=== PATIENT | female | born 1980 | race Caucasian/White ===

== ENCOUNTER 2017-01-07 07:30 | Inpatient (IN) | payer BC ==
[~2017-01-07 07:30] MED LIST: cefOXitin 2 GM Vial ONE
[2017-01-07] MEDS ORDERED: Succinylcholine 200 MG/10 ML MDV ONE (07:56)
[2017-01-07] MEDS ORDERED: Rocuronium 50 MG/5 ML Vial ONE ×2 (07:56→12:37)
[2017-01-07] MEDS ORDERED: Propofol 200 MG/20 ML SDV ONE (07:56)
[2017-01-07] MEDS ORDERED: Neostigmine Methylsulfate 1 MG/ML 5 ML Syringe ONE (07:56)
[2017-01-07] MEDS ORDERED: Dexamethasone 4 MG/ML SDV ONE (07:56)
[2017-01-07] MEDS ORDERED: Glycopyrrolate 0.2 MG/ML 5 ML MDV ONE (07:56)
[2017-01-07] MEDS ORDERED: Ondansetron 4 MG/2 ML SDV ONE (07:56)
[2017-01-07] MEDS ORDERED: Lactated Ringers 1,000 ML ONE (07:58)
[2017-01-07] MEDS ORDERED: Scopolamine 1.5 MG Transdermal Patch TRDERM SCH (08:00)
[2017-01-07] MEDS ORDERED: Celecoxib 200 MG Cap PO ONE (08:00)
[2017-01-07] MEDS ORDERED: Gabapentin 300 MG Cap PO ONE (08:00)
[2017-01-07] MEDS ORDERED: Acetaminophen 500 MG Tab PO ONE (08:00)
[2017-01-07] MEDS ORDERED: Dextrose 5%-Lactated Ringers 1,000 ML IV SCH (08:30)
[2017-01-07] MEDS ORDERED: Albuterol/Ipratropium 3.0-0.5 MG/3 ML Neb Soln NEB ONE (10:00)
[2017-01-07] MEDS ORDERED: Ropivacaine 60 ML, Dexamethasone 8 MG, EPINEPHrine 0.4 MG, Sodium Chloride 0.9% 17.6 ML NERVRT ONE ×4 (10:15)
[2017-01-07] MEDS ORDERED: Ketamine 500 MG/5 ML MDV IV ONE (10:15)
[2017-01-07] MEDS ORDERED: Lidocaine 2% 100 MG/5 ML Syringe IVPUSH ONE (10:15)
[2017-01-07] MEDS: cefOXitin 2 GM in Sodium Chloride 0.9% 50 ML IV ONE ×2 (11:15→15:19)
[2017-01-07] MEDS ORDERED: fentaNYL 100 MCG/2 ML SDV ONE (13:05)
[2017-01-07] MEDS: Lidocaine 0.4%/D5W 2 GM/500 ML BAG IV SCH (14:52)
[2017-01-07] MEDS ORDERED: Metoclopramide 10 MG/2 ML SDV IVPUSH PRN (15:00)
[2017-01-07] MEDS ORDERED: diphenhydrAMINE 50 MG/ML SDV IVPUSH PRN (15:00)
[2017-01-07] MEDS ORDERED: Labetalol 20 MG/4 ML Syringe IVPUSH PRN (15:00)
[2017-01-07] MEDS ORDERED: SCOPOLAMINE PATCH CHECK TOP SCH (15:00)
[2017-01-07] MEDS ORDERED: Albuterol/Ipratropium 3.0-0.5 MG/3 ML Neb Soln INH PRN (15:00)
[2017-01-07] MEDS: Albuterol/Ipratropium 3.0-0.5 MG/3 ML Neb Soln INH SCH ×2 (15:35→21:10)
[2017-01-07] MEDS: cefOXitin 2 GM in Sodium Chloride 0.9% 50 ML IV SCH ×2 (16:11→22:42)
[2017-01-07] MEDS: Acetaminophen Soln 650 MG/20.3 ML UD Cup PO SCH ×2 (16:16→21:13)
[2017-01-07] MEDS: hydrOXYzine HCl 100 MG/2 ML SDV IM PRN ×2 (16:21→22:35)
[2017-01-07] MEDS: Pantoprazole 40 MG Vial IVPUSH SCH (16:27)
[2017-01-07] MEDS: MVI, Adult with Vitamin K 10 ML, Thiamine 200 MG, Chromium/Copper/Mang/Selen/Zn 1 ML in... IV SCH ×4 (18:10)
[2017-01-07] MEDS: Ondansetron 4 MG/2 ML SDV IVPUSH PRN (20:54)
[2017-01-07] MEDS: Heparin Sodium 5,000 Units/ML Vial SUBCUT SCH (20:54)
[2017-01-07] MEDS: Gabapentin 250 MG/5 ML Solution ML 470 ML Bottle PO SCH (21:03)
[2017-01-08] MEDS: Dextrose 5%-Lactated Ringers 1,000 ML IV SCH ×3 (00:46→19:22)
[2017-01-08] MEDS ORDERED: Lactated Ringers 500 ML IV ONE (01:50)
[2017-01-08] MEDS ORDERED: Iohexol 647 MG/ML 50 ML SDV PO STA (03:11)
[2017-01-08] MEDS: Acetaminophen Soln 650 MG/20.3 ML UD Cup PO SCH ×4 (03:52→21:53)
[2017-01-08] MEDS: Lidocaine 0.4%/D5W 2 GM/500 ML BAG IV SCH (03:52)
[2017-01-08] MEDS: cefOXitin 2 GM in Sodium Chloride 0.9% 50 ML IV SCH ×2 (03:52→09:43)
[2017-01-08] MEDS: Ondansetron 4 MG/2 ML SDV IVPUSH PRN (06:28)
[2017-01-08] MEDS: Heparin Sodium 5,000 Units/ML Vial SUBCUT SCH ×2 (07:18→19:48)
[2017-01-08] MEDS: Albuterol/Ipratropium 3.0-0.5 MG/3 ML Neb Soln INH SCH ×4 (07:41→19:59)
[2017-01-08] MEDS ORDERED: Mometasone Furoate Nasal Spray 17 GM Canister NASBOTH PRN (07:54)
[2017-01-08] MEDS ORDERED: ClonazePAM 0.5 MG Tab PO PRN (07:54)
[2017-01-08] MEDS ORDERED: Ondansetron 4 MG Tab.DIS PO PRN (07:54)
[2017-01-08] MEDS ORDERED: Albuterol 8 GM Inhaler INH PRN (07:54)
[2017-01-08] MEDS ORDERED: FLUoxetine 20 MG Cap PO SCH ×2 (09:00)
--- NOTE | 2017-01-08 09:06 | PN ---
DATE OF SERVICE: 01/08/2017 SUBJECTIVE: Radha is postop day #1. Her upper GI was normal. She has received Vistaril for additional pain. She did receive one bolus of lactated Ringer's and has voided 3 times since. She does have some nausea. She has been up ambulating. REVIEW OF SYSTEMS: Remainder of review of systems negative for any pertinent positives or negatives. OBJECTIVE: GENERAL: Radha Choi is a 36-year-old female. She is nauseated right now and not feeling real well. VITAL SIGNS: TPR is 98.4, 90, 18, and blood pressure 146/90. HEENT: Negative. NECK: Supple. HEART: Regular rate and rhythm. LUNGS: Clear. ABDOMEN: Dressings dry and intact. Abdominal binder is on. EXTREMITIES: Without peripheral edema. She has had her SCDs on when she is in bed. ASSESSMENT: Laparoscopic Valerie-en-Y gastric bypass surgery, liver biopsy, repair of diaphragmatic hernia, and excision of mediastinal lipoma for morbid obesity, hepatomegaly, diaphragmatic hernia, and mediastinal lipoma. Date of surgery 01/07/2017, Brandon Youngblood MD. NEW ORDERS: 1. Dressing off. 2. July shower. 3. Ventolin inhaler 2 puffs q.4 hours p.r.n. shortness of breath. 4. Wellbutrin 100 mg p.o. t.i.d. 5. Zyrtec 10 mg p.o. daily. 6. Clonazepam 0.5 mg p.o. t.i.d. p.r.n. anxiety. 7. Flexeril 10 mg at bedtime. 8. Prozac 40 mg oral Friday, Friday, Friday, and Friday. 9. Prozac 80 mg Friday, Friday, , and Friday. 10.Metformin 500 mg b.i.d. 11.Mometasone furoate one spray in each nostril daily. 12.Zofran 4 mg ODT q.4 hours p.r.n. pain. 13.Inderal 40 mg p.o. q.8 hours. 14.Good pulmonary toilet. 15.We will evaluate p.r.n. or in a.m. Kiley Perdue PA-C /[id number]
[2017-01-08] MEDS: Celecoxib 200 MG Cap PO SCH (09:34)
[2017-01-08] MEDS: Propranolol 40 MG Tab PO SCH ×3 (09:35→23:30)
[2017-01-08] MEDS: metFORMIN 500 MG Tab PO SCH ×2 (09:35→17:53)
[2017-01-08] MEDS: buPROPion 100 MG Tab PO SCH ×3 (09:36→19:59)
[2017-01-08] MEDS: Cetirizine 10 MG Tab PO SCH (09:36)
[2017-01-08] MEDS: Gabapentin 250 MG/5 ML Solution ML 470 ML Bottle PO SCH ×3 (09:44→19:59)
--- NOTE | 2017-01-08 09:52 | CR ---
[facility] HISTORY: eval r-n-y gastric bypass FINDINGS: After administration of oral contrast, upright views were obtained. Post operative changes gastric bypass. Surgical drains in place. No evidence for leak. Contrast passes freely into proximal small bowel loops. IMPRESSION: No evidence for leak or obstruction.
[2017-01-08] MEDS: Pantoprazole 40 MG Vial IVPUSH SCH (15:37)
[2017-01-08] MEDS: MVI, Adult with Vitamin K 10 ML, Thiamine 200 MG, Chromium/Copper/Mang/Selen/Zn 1 ML in... IV SCH ×4 (15:37)
--- NOTE | 2017-01-08 19:29 | PCM.SN ---
- Free Text/Narrative Note: time: 19:22 call from 2 [facility]; requesting consult for skin rash s; Ms. Choi denies any shortness of breath, agitation, pruritus, cough or swallowing difficulty o; new IV fluids started prior to onset of rash, D5LR with multi vitamins. vital signs stable no respiratory distress, easy breathing pattern, lungs clear Skin; red, warm to touch, blotchy rash is noted to face, neck, upper chest and arms. a; possible allergic reaction to IV fluids with multi vitamins p; advise to stop IV D5LR with Multi vitamins, start IV D5 LR at previous rate. give IV Benadryl 25mg now. re-assess in 1 to 2 hours, if still with redness will consider start short term IV steroids. Advise Ms. Chio to notify Nursing Staff of any breathing changes or worsen rash.
[2017-01-08] MEDS ORDERED: Cyclobenzaprine 10 MG Tab PO PRN (22:00)
[2017-01-08] MEDS ORDERED: methylPREDNISolone Sodium Succinate 125 MG/2 ML SDV IVPUSH SCH (23:00)
[2017-01-08] MEDS ORDERED: Insulin Aspart 100 Units/ML 3 ML Pen SUBCUT SCH (23:00)
[2017-01-09] MEDS: Acetaminophen Soln 650 MG/20.3 ML UD Cup PO SCH (03:47)
[2017-01-09] MEDS: Dextrose 5%-Lactated Ringers 1,000 ML IV SCH (05:25)
[2017-01-09] MEDS: Celecoxib 200 MG Cap PO SCH (07:29)
[2017-01-09] MEDS: metFORMIN 500 MG Tab PO SCH (07:29)
[2017-01-09] MEDS: Propranolol 40 MG Tab PO SCH (07:30)
[2017-01-09] MEDS: Albuterol/Ipratropium 3.0-0.5 MG/3 ML Neb Soln INH SCH (07:32)
[2017-01-09] MEDS: Gabapentin 250 MG/5 ML Solution ML 470 ML Bottle PO SCH (08:09)
[2017-01-09] MEDS: buPROPion 100 MG Tab PO SCH (08:10)
[2017-01-09] MEDS: Cetirizine 10 MG Tab PO SCH (08:11)
[2017-01-09] MEDS ORDERED: FLUoxetine 20 MG Cap PO SCH ×2 (09:00)
[2017-01-09] MEDS ORDERED: Cyanocobalamin (Vitamin B12) 1,000 MCG/ML SDV IM ONE (09:00)
--- NOTE | 2017-01-09 11:26 | DISCH ---
ADMISSION DIAGNOSIS: Morbid obesity, BMI 57; allergic rhinitis; bilateral myopia; binge eating disorder; depression; diarrhea; general anxiety disorder; headache; high risk sexual behavior; hyperprolactinemia; IUD contraception; keratosis polaris; low back pain; menstrual irregularity; migraine headache; myofascial pain syndrome; neurological complaint; obesity; panic disorder without agoraphobia; plantar fasciitis; polycystic ovary disease; rosacea; seborrheic dermatitis; syncope; and tinnitus. DISCHARGE DIAGNOSES: Laparoscopic Valerie-en-Y gastric bypass surgery, liver biopsy, repair of diaphragmatic hernia and excision of mediastinal lipoma for morbid obesity, hepatomegaly, diaphragmatic hernia, and mediastinal lipoma. Date of surgery, 01/07/2017, Brandon Youngblood MD. HISTORY: Radha Choi is a 36-year-old female with longstanding history of morbid obesity with increasing comorbidities. After preoperative evaluation and discussion of possible risks and possible complications, she wished to proceed with surgical procedure. HOSPITAL COURSE: Radha had her surgery on 01/07/2017. She had no operative complications. On postop day #1, her upper GI was normal, and she was started on a step-2 gastric bypass diet without cereal. On postop day #2, her activity was good. She received adequate postoperative education, pain was well managed, activity was good, oral intake adequate, and she was able to be discharged to home. DISCHARGE PHYSICAL EXAMINATION: GENERAL: Radha Choi is a 36-year-old female. VITAL SIGNS: Height is 5 feet 6.54 inches, weight is 363 pounds, BMI is 57, TPR is 97.8, 86, 18. Blood pressure 118/66. HEENT: Negative. NECK: Supple. HEART: Regular rate and rhythm. LUNGS: Clear. ABDOMEN: Incisions look good. Sutures intact. 4x4s were placed over MAGALYS drain site. Abdominal binder has been on. EXTREMITIES: Without peripheral edema. DISPOSITION: Discharged to home. CONDITION: Stable and improving. FOLLOWUP APPOINTMENTS: Kiley Perdue PA-C on 01/21/2017 at 10:00 a.m. HOME MEDICATIONS: Acetaminophen 650/20.3 mL q.6 hours for 2 weeks; Celebrex 200 mg p.o. daily, #14; she is to resume her home medication of Midrin two capsules daily p.r.n. migraine headache; ProAir two puffs inhalation every 4 hours; Zyrtec 10 mg oral daily; Klonopin 0.5 mg t.i.d. p.r.n. anxiety; Flexeril 10 mg oral every evening; Prozac 80 mg q. Friday, Friday, , Friday; Prozac 40 mg every Friday, Friday, Friday, and Friday; Neurontin 600 mg q.3 times daily; Nasonex 1 spray in each nostril daily p.r.n.; Inderal 40 mg oral 3 times a day; Wellbutrin 100 mg 3 times a day; metformin 500 mg oral twice daily. DISCHARGE DIET: Step 2 gastric bypass diet without cereal for 2 weeks. ACTIVITY: No lifting greater than 10 pounds for 2 weeks. Driving after discharge, do not drive for 1 week. Shower/bathing, may shower. Notify provider if any fever, nausea, or vomiting. Keep site clean and dry. Wear abdominal binder for 2 weeks and then p.r.n. SPECIAL INSTRUCTION: Use incentive spirometer 10 times every hour while awake for 2 weeks.
--- NOTE | 2017-01-13 15:36 | OR ---
DATE OF PROCEDURE: 01/07/2017 PREOPERATIVE DIAGNOSIS: Morbid obesity. POSTOPERATIVE DIAGNOSES: 1. Morbid obesity. 2. Marked hepatomegaly. 3. Paraesophageal diaphragmatic hernia. 4. Mediastinal lipoma. OPERATIVE PROCEDURES: 1. Laparoscopic Valerie-en-Y gastric bypass with long limb gastroenterostomy (08369). 2. Channing-Cut needle liver biopsy (99074). 3. Repair of paraesophageal diaphragmatic hernia (75469). 4. Excision of mediastinal lipoma (92353). ANESTHESIA: General. INDICATION FOR PROCEDURE: This is a 36-year-old female presenting with longstanding morbid obesity and increasingly significant comorbidities. After preoperative evaluation and discussion, she wished to proceed with a gastric bypass procedure. Potential risks of the procedure including bleeding, infection, leaks from various GI tract closures, problems with bowel obstruction over time as well as possibility of cardiopulmonary, septic, or hemorrhagic complications leading to were discussed, and the patient wishes to proceed. DETAILS OF PROCEDURE: The patient was taken to the operating room, and after general endotracheal anesthesia was induced, she was converted to a lithotomy position. Bilateral subcostal transverse abdominis plane blocks were then placed using continuous ultrasound guidance and the usual solutions. The abdomen was then prepped and draped and an orogastric tube placed. At 15 cm inferior, 5 cm left of xiphoid process, a transverse incision was made and the peritoneal cavity entered under direct vision with Optiview trocar inflated to 15 mmHg pressure with CO2. Laparoscope was reinserted. No underlying trocar insertion site injuries were seen. Following this, 5 additional trocars were placed across the upper and mid abdomen, and general exploration was undertaken. The patient was noted to have marked hepatomegaly with liver volume being roughly 2 to 3 times normal and liver was grossly fatty infiltrated. Channing-Cut needle biopsies were obtained from left lobe of the liver. Minimal bleeding from the biopsy sites was controlled with electrocautery. The omentum was then divided in the midline up to the level of the transverse colon. This allowed identification of the small bowel at the ligament of Treitz. Small bowel was then traced out 200 cm distal to that point and was divided transversely with a ELSI stapler. Small bowel was then traced out additional 150 cm where the [id number] enteroenterostomy was accomplished with internal firing of the Endo-ELSI 60 mm stapler. Common opening was then closed transversely with the same stapler and angles anastomosed, mesenteric defect approximated with some 0 Ethibond stitch, along with fibrin sealant. The divided end of the Valerie limb was from the mesentery for a few centimeters, which allowed an antecolic position of the Valerie limb up to the level of the esophagogastric junction without tension. The liver was then retracted anteriorly. The patient was noted to have a moderate-sized paraesophageal diaphragmatic hernia. This contained some omentum, along with some perigastric fat in the edge of the fundus, prolapsing in a plane anterior to the course of the esophagus. The hernia was reduced and the peritoneum overlying it incised. During the course of the dissection, a mediastinal lipoma was encountered and was excised to facilitate adequate repair of the hernia. The hernia was then repaired anteriorly with 0 Ethibond sutures, reinforced with PTFE pledgets. The gastrointestinal balloon catheter was inflated to 15 mL and pulled up snugly against the EG junction. Gastric wall over the apex of the balloon was then marked with electrocautery and balloon catheter was deflated and pulled up from the esophagus. The lesser omental tissue was then divided, allowing dissection behind the stomach at the level of the gastric cardia. At that level, the pouch was initiated with a transverse firing of the ELSI stapler and then completed with 2 additional firings of ELSI stapler up to and through the angle of His. Upon completion of the pouch, both staple lines were noted to be intact. The anvil of a 21 mm EEA stapler was then attached to Huerfano sump type tube. The latter was brought down through the mouth and taken out through a small opening in the gastric pouch, allowing the anvil likewise to be pulled down to within the gastric pouch. The divided end of the Valerie limb was then opened and the main body of the EEA stapler passed several centimeters into the small bowel and brought up the anvil and united with it, thus creating the gastrojejunostomy. Upon removal of the stapler, double donuts of mucosa were noted within it. The small bowel was closed off with a vascular staple line. Gastrojejunostomy was reinforced with some 3-0 Vicryl seromuscular stitch, along with fibrin sealant. Leak test was accomplished with injection of 120 mL of air in the gastric pouch while submerged with cefoxitin-containing saline solution. No leaks were identified. A single Mauricio- Jennings drain was taken out through the left lateral trocar site, placed in the area of the gastrojejunostomy and up into the splenic fossa. The trocars were sequentially removed and the peritoneal cavity decompressed. The incision was closed with some 4-0 Vicryl skin stitch, and the patient was taken to the recovery room in satisfactory condition. There were no evident complications. Brandon Youngblood MD /[id number]
== END 2017-01-09 09:44 | disposition home or self-care (01) | DRG 403 ==
LOC: EDSTATUS 07:30 → JP.SDS 08:15 → JP.SDSSCHI 08:15 → JP.2SS 13:30
PROVIDERS: ADMIT Surgery; ATTEND Surgery
PROC: 0D164ZA Bypass Stomach to Jejunum, Percutaneous Endoscopic Approach (ICD-10-PCS; principal; 2017-01-07)
PROC: 0BQT4ZZ Repair Diaphragm, Percutaneous Endoscopic Approach (ICD-10-PCS; 2017-01-07)
PROC: 0FB24ZX Excision of Left Lobe Liver, Percutaneous Endoscopic Approach, Diagnostic (ICD-10-PCS; 2017-01-07)
PROC: 0WBC4ZX Excision of Mediastinum, Percutaneous Endoscopic Approach, Diagnostic (ICD-10-PCS; 2017-01-07)
DX: E66.01 Morbid (severe) obesity due to excess calories (principal); Z68.43 Body mass index [BMI] 50.0-59.9, adult; G43.909 Migraine, unspecified, not intractable, without status migrainosus; F32.9 Major depressive disorder, single episode, unspecified; G40.909 Epilepsy, unspecified, not intractable, without status epilepticus; F41.1 Generalized anxiety disorder; Z87.891 Personal history of nicotine dependence; M54.9 Dorsalgia, unspecified; J30.9 Allergic rhinitis, unspecified; K44.9 Diaphragmatic hernia without obstruction or gangrene; R16.0 Hepatomegaly, not elsewhere classified; D17.4 Benign lipomatous neoplasm of intrathoracic organs; Z88.2 Allergy status to sulfonamides; Z91.048 Other nonmedicinal substance allergy status; K76.0 Fatty (change of) liver, not elsewhere classified
CPT/HCPCS: 36415; 74240; 74240-26; 80048; 82962; 83735; 84100; 85027; 86850; 86900; 86901; 88304; 88307; 88313; 94640; A9270-GY; C9113; J0171; J0330; J0694; J1100; J1200; J1644; J2001; J2405; J2704; J2710; J2765; J2795; J2930; J3010; J3410; J3411; J3420; J7030; J7040; J7042; J7050; J7120; J7620; Q9967

== ENCOUNTER 2017-01-25 21:00 | Observation (INO) | payer BC ==
[2017-01-25] MEDS ORDERED: Ondansetron 4 MG Tab.DIS PO PRN (21:19)
[2017-01-25] MEDS ORDERED: Acetaminophen 325 MG Tab PO PRN (21:22)
[2017-01-25] MEDS ORDERED: [UNRECOGNIZED DRUG - OTHER] PO PRN (21:26)
[2017-01-25] MEDS ORDERED: ACETAMINOPHEN PO PRN (21:26)
[2017-01-25] MEDS ORDERED: ISOMETHEPTENE PO PRN (21:26)
[2017-01-25] MEDS ORDERED: Albuterol 8 GM Inhaler INH PRN (21:26)
[2017-01-25] MEDS ORDERED: Pantoprazole 40 MG Vial IVPUSH SCH (21:30)
[2017-01-25] MEDS ORDERED: MVI, Adult with Vitamin K 10 ML, Thiamine 100 MG, Magnesium Sulfate 2 GM, Folic Acid 1 ... IV SCH ×5 (21:30)
[2017-01-25] MEDS ORDERED: Magnesium Sulfate (4.06 MEQ/ML) 1 GM/2 ML SDV ONE (22:35)
[2017-01-25] MEDS ORDERED: Folic Acid 50 MG/10 ML MDV ONE (22:36)
[2017-01-25] MEDS ORDERED: Thiamine 200 MG/2 ML MDV ONE (22:37)
[2017-01-25] MEDS ORDERED: MVI, Adult with Vitamin K 10 ML SDV IV ONE (22:37)
[2017-01-25] MEDS: Acetaminophen Soln 650 MG/20.3 ML UD Cup PO SCH (23:26)
[2017-01-26] MEDS: Dextrose 5%-Lactated Ringers 1,000 ML IV SCH ×2 (03:07→09:57)
[2017-01-26] MEDS: Acetaminophen Soln 650 MG/20.3 ML UD Cup PO SCH ×2 (03:59→14:02)
--- NOTE | 2017-01-26 06:29 | PCM.HP ---
H&P History of Present Illness - General Date of Service: 01/26/17 Source of Information: Patient History Limitations: Reports: No Limitations - History of Present Illness Initial Comments - Free Text/Narative: Patient started Step 3 Diet on 01/21/17 and was eating some hamburger yesterday at noon felt it get stuck. After trying Papaya enzyme and clear liquids she went to ED to [place] recieved IV fluids and continued to vomit. She is admitted for Observation to have an EGD with possible dilation today. Improves with: Reports: None Worsens with: Reports: Eating Associated Symptoms: Reports: Nausea/Vomiting - Related Data Allergies/Adverse Reactions: Allergies Allergy/AdvReac Type Severity Reaction Status Date / Time adhesive tape Allergy Rash Verified 01/07/17 08:49 Sulfa (Sulfonamide Allergy Itching Verified 01/07/17 08:49 Antibiotics) Home Medications: Home Meds Acetaminop/Dichlphn/Isomethept [Midrin 325-100-65 MG] 2 cap PO DAILY PRN [History] Albuterol Sulfate [Proair Hfa] 2 inh INH Q4H PRN 01/03/17 [History] Celecoxib [CeleBREX] 200 mg PO DAILY 01/03/17 [History] Cetirizine [ZyrTEC] 10 mg PO DAILY 01/03/17 [History] ClonazePAM [KlonoPIN] 0.5 mg PO TID PRN 01/03/17 [History] FLUoxetine HCl [Prozac] 80 mg PO SUTUTHSA 01/03/17 [History] FLUoxetine [PROzac] 40 mg PO MOWEFRSA 01/03/17 [History] Gabapentin [Neurontin] 600 mg PO TID 01/03/17 [History] Mometasone Furoate [Nasonex] 1 inh INH DAILY PRN 01/03/17 [History] Propranolol [Inderal LA] 40 mg PO TID 01/03/17 [History] buPROPion [Wellbutrin XL] 100 mg PO TID 01/03/17 [History] metFORMIN [Glucophage] 500 mg PO BIDMEALS 01/03/17 [History] Cyclobenzaprine [Flexeril] 10 mg PO QPM 01/07/17 [History] Acetaminophen [Tylenol] 650 mg PO Q6H #1200 ml 01/09/17 [Rx] Celecoxib [CeleBREX] 200 mg PO DAILY@0800 #14 cap 01/09/17 [Rx] Ondansetron [Zofran ODT] 4 mg PO Q4H PRN #30 tab.dis 01/09/17 [Rx] Past Medical History HEENT History: Reports: Allergic Rhinitis, Sinusitis Respiratory History: Reports: Bronchitis, Recurrent Gastrointestinal History: Reports: Cholelithiasis, Chronic Diarrhea, GERD 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: Dysfunctional Uterine Bleeding, Polycystic Ovaries, , Spontaneous Musculoskeletal History: Reports: Back Pain, Chronic, Fracture, Other (See Below ) Other Musculoskeletal History: Yuniel carpal tunnel Neurological History: Reports: Migraines, Seizure, Other (See Below) Other Neuro History: Non epileptic spells Psychiatric History: Reports: Anxiety, Depression, Panic Attack, PTSD Endocrine/Metabolic History: Reports: Obesity/BMI 30+ Dermatologic History: Reports: None - Infectious Disease History Infectious Disease History: Reports: Chicken Pox - Past Surgical History HEENT Surgical History: Reports: LASIK, Oral Surgery Respiratory Surgical History: Reports: None GI Surgical History: Reports: Appendectomy, Cholecystectomy, Other (See Below) Other GI Surgeries/Procedures: RNY Female Surgical History: Reports: None Endocrine Surgical History: Reports: None Neurological Surgical History: Reports: None Musculoskeletal Surgical History: Reports: Other (See Below) Other Musculoskeletal Surgeries/Procedures:: Left wrist fx/plate Dermatological Surgical History: Reports: Skin Biopsy Social & Family History - Family History Family Medical History: Noncontributory - Tobacco Use Smoking Status *Q: Never Smoker Years of Tobacco use: 8 Packs/Tins Daily: 0.1 Used Tobacco, but Quit: Yes Month Tobacco Last Used: 2007 Second Hand Smoke Exposure: No - Caffeine Use Caffeine Use: Reports: None - Alcohol Use Days Per Week of Alcohol Use: 0 - Recreational Drug Use Recreational Drug Use: No H&P Review of Systems - Review of Systems: Review Of Systems: ROS reveals no pertinent complaints other than HPI. Exam - Exam Exam: See Below - Vital Signs Vital Signs: Last Vital Signs Temp 96.9 F 01/26/17 04:02 Pulse 73 01/26/17 04:02 Resp 18 01/26/17 04:02 BP 128/74 01/26/17 04:02 Pulse Ox 98 01/26/17 04:02 Weight: 339 lb 6.4 oz - Exam Quality Assessment: DVT Prophylaxis General: Alert, Oriented HEENT: PERRLA Neck: Supple, Trachea Midline Lungs: Clear to Auscultation, Normal Respiratory Effort Cardiovascular: Regular Rate, Regular Rhythm GI/Abdominal Exam: Soft (Female) Exam: Deferred Rectal (Female) Exam: Deferred Back Exam: Normal Inspection Extremities: Normal Inspection Skin: Warm, Dry, Intact Neurological: Cranial Nerves Intact, Reflexes Equal Bilateral Neuro Extensive - Mental Status: Alert, Oriented x3, Normal Mood/Affect Neuro Extensive - Motor, Sensory, Reflexes: CN II-XII Intact Psychiatric: Alert, Normal Affect, Normal Mood *Q Meaningful Use (ADM) - VTE *Q VTE Criteria *Q: - Stroke *Q Stroke Criteria *Q: - AMI *Q AMI Criteria *Q: Problem List Initiated/Reviewed/Updated: Yes Orders Last 24hrs: Active Orders 24 hr Category Date Time Status Intake and Output [RC] ASDIRECTED Care 01/25/17 21:21 Active Verify Patient Consent Obtain [RC] ASDIRECTED Care 01/25/17 21:23 Active Vital Signs [RC] Q8H Care 01/25/17 21:29 Active Acetaminop/Dichlphn/Isomethept [Midrin 325-100-65 MG] Med 01/25/17 21:26 Active 2 cap PO DAILY PRN Acetaminophen [Tylenol] Med 01/25/17 21:22 Active 650 mg PO Q4H PRN Acetaminophen [Tylenol] Med 01/25/17 21:30 Active 650 mg PO Q6H Albuterol [Ventolin HFA] Med 01/25/17 21:26 Active 0 gm INH Q4H PRN Dextrose 5%-Lactated Ringers 1,000 ml Med 01/25/17 21:30 Active IV ASDIRECTED FLU Vacc [id number] 36Mos UP/PF [Fluzone Quad [id number]] Med 01/26/17 10:00 Once 60 mcg IM .ONCE ONE Glycopyrrolate Med 01/26/17 09:00 Once 0.4 mg IVPUSH ONETIME ONE Ondansetron [Zofran ODT] Med 01/25/17 21:19 Active 4 mg PO Q4H PRN Ondansetron [Zofran] Med 01/25/17 21:20 Active 4 mg IVPUSH Q4H PRN Pantoprazole [ProTONIX IV] Med 01/25/17 21:30 Active 40 mg IVPUSH Q24H buPROPion [Wellbutrin XL] Med 01/26/17 09:00 Active 100 mg PO TID SCD [Sequential Compression Device] [OM.PC] Routine Oth 01/25/17 21:20 Ordered Medication Orders Acetaminophen (Tylenol) 650 mg PO Q4H PRN PRN Reason: Pain Acetaminophen (Tylenol) 650 mg PO Q6H [facility] Last Admin: 01/26/17 03:59 Dose: 650 mg Admin: 01/25/17 23:26 Dose: Not Given Albuterol (Ventolin Hfa) 0 gm INH Q4H PRN PRN Reason: Shortness of Breath Glycopyrrolate (Glycopyrrolate) 0.4 mg IVPUSH ONETIME ONE Stop: 01/26/17 09:01 Dextrose/Lactated Ringer's (Dextrose 5%-Lactated Ringers) 1,000 mls @ 150 mls/ hr IV ASDIRECTED [facility] Last Admin: 01/26/17 03:07 Dose: 150 mls/hr Influenza Virus Vaccine (Fluzone Quad [id number]) 60 mcg IM .ONCE ONE Stop: 01/26/17 10:01 Isometheptene/Acetam/Dichloralphen (Midrin 325-100-65 Mg) 2 cap PO DAILY PRN PRN Reason: migraine headache Non-Formulary Medication (Bupropion [Wellbutrin Xl]) 100 mg PO TID [facility] Ondansetron HCl (Zofran Odt) 4 mg PO Q4H PRN PRN Reason: Nausea/Vomiting Last Admin: 01/25/17 22:25 Dose: 4 mg Ondansetron HCl (Zofran) 4 mg IVPUSH Q4H PRN PRN Reason: Nausea/Vomiting Pantoprazole Sodium (Protonix Iv) 40 mg IVPUSH Q24H [facility] Last Admin: 01/25/17 23:26 Dose: 40 mg Assessment/Plan Comment:: Dysphagia Admit to Observation Plan: EGD with Dilation See copy of orders Kiley Moore
[2017-01-26] MEDS ORDERED: Acetaminophen 160 MG Tab,Disintegrating PO PRN (07:11)
[2017-01-26] MEDS: Ondansetron 4 MG/2 ML SDV IVPUSH PRN ×2 (07:56→12:02)
[2017-01-26] MEDS ORDERED: buPROPion 100 MG Tab PO SCH (09:00)
[2017-01-26] MEDS ORDERED: BUPROPION 100 MG PO SCH (09:00)
[2017-01-26] MEDS ORDERED: Glycopyrrolate 0.2 MG/ML 2 ML SDV IVPUSH ONE (09:00)
[2017-01-26] MEDS ORDERED: FLU Vacc QS 2017-18 (36mos UP)/PF 60 MCG/0.5 ML Syringe IM ONE (10:00)
[2017-01-26] MEDS ORDERED: fentaNYL 100 MCG/2 ML SDV ONE (10:06)
[2017-01-26] MEDS ORDERED: Propofol 200 MG/20 ML SDV ONE (10:07)
[2017-01-26] MEDS ORDERED: Midazolam 1 MG/ML 2 ML SDV ONE (10:07)
[2017-01-26] MEDS ORDERED: Ondansetron 4 MG/2 ML SDV ONE (10:54)
[2017-01-26] MEDS ORDERED: Metoclopramide 10 MG/2 ML SDV IV ONE (12:00)
--- NOTE | 2017-01-29 10:35 | OR ---
DATE OF PROCEDURE: 01/26/2017 PREOPERATIVE DIAGNOSIS: Strictured gastrojejunostomy. POSTOPERATIVE DIAGNOSIS: Strictured gastrojejunostomy. OPERATIVE PROCEDURE: Upper GI endoscopy with dilation of gastrojejunostomy ( [id number]). ANESTHESIA: IV sedation. INDICATION FOR PROCEDURE: This is a 36-year-old female presenting with symptoms suggestive of stricturing at her gastrojejunostomy. She is status post Valerie-en- Y gastric bypass on 01/08/2017, so we needed to be fairly conservative with the dilation. Potential risks of the procedure including bleeding and perforation were reviewed, and the patient wishes to proceed. DETAILS OF PROCEDURE: The patient was taken to the operating room and placed in a left lateral decubitus position. IV sedation was administered, after which the upper GI endoscope was passed orally through the length of the esophagus and into the gastric pouch. No retained food or fluid were noted. She was noted to have a moderate stricture at the gastrojejunostomy, measuring around 8 mm. A Bard gastrointestinal balloon catheter was then centered across the anastomosis and inflated to around 36-Mongolian size. This was only brought up to level 2, i.e. 45 psi, to remain conservative in terms of the extent of dilation. After it had been placed for 1 minute, the balloon catheter was deflated and withdrawn. The scope could easily then be passed through the anastomosis. No complications were evident. The patient was taken to the recovery room in satisfactory condition. Brandon Youngblood MD /[id number] MTDD
--- NOTE | 2017-02-12 14:16 | DISCH ---
FINAL DIAGNOSIS: Stricture at gastrojejunostomy. SECONDARY DIAGNOSES: 1. Bariatric surgery status. 2. Morbid obesity. 3. History of gastroesophageal reflux disease. 4. Polycystic ovary syndrome. 5. Anxiety and depression. OPERATIVE PROCEDURE: This was done on 01/26, upper GI endoscopy with dilation of gastrojejunostomy. HOSPITAL COURSE: This is a 36-year-old status post Valerie-en-Y gastric bypass on 01/08/2017 presenting with a set of symptoms suggestive of stricturing at her gastrojejunostomy. After admission during the nighttime as an observation patient, the patient had the upper endoscopy and dilation with a 36-Armenian size balloon and thereafter was discharged home and at that point, she tolerated step 2 diet which she will be on 5 days. Follow up will be with Kiley Perdue in roughly one month. She should be under her usual medication regimen.
== END 2017-01-26 16:15 | disposition home or self-care (01) ==
LOC: JP.MS 21:00
PROVIDERS: ADMIT Surgery; ATTEND Surgery
DX: K95.89 Other complications of other bariatric procedure (principal); K21.9 Gastro-esophageal reflux disease without esophagitis; K52.9 Noninfective gastroenteritis and colitis, unspecified; F41.9 Anxiety disorder, unspecified; F32.9 Major depressive disorder, single episode, unspecified; E66.9 Obesity, unspecified; Z88.2 Allergy status to sulfonamides; Z91.048 Other nonmedicinal substance allergy status; Z79.899 Other long term (current) drug therapy; Z68.30 Body mass index [BMI] 30.0-30.9, adult; Z90.49 Acquired absence of other specified parts of digestive tract; Z98.890 Other specified postprocedural states
CPT/HCPCS: 43245; 96361; 96365; 96366; 96375; 96376; A9270; C9113; J2250; J2405; J2704; J2765; J3010; J3411; J3475; J7042; J7120; 90686; G0008; J3490

== ENCOUNTER 2019-04-25 03:54 | Inpatient (IN) | payer BC ==
[2019-04-25] MEDS ORDERED: Dextrose 5%-Lactated Ringers 1,000 ML IV SCH (04:30)
[2019-04-25] MEDS: HYDROmorphone 1 MG/ML Syringe IVPUSH PRN ×2 (04:54→07:37)
[2019-04-25] MEDS ORDERED: fentaNYL 250 MCG/5 ML SDV ONE ×2 (05:49→09:33)
[2019-04-25] MEDS ORDERED: Glycopyrrolate 0.2 MG/ML 5 ML MDV ONE (05:49)
[2019-04-25] MEDS ORDERED: Dexamethasone 4 MG/ML SDV ONE (05:49)
[2019-04-25] MEDS ORDERED: Rocuronium 50 MG/5 ML Vial ONE ×2 (05:49→09:14)
[2019-04-25] MEDS ORDERED: Propofol 200 MG/20 ML SDV ONE (05:49)
[2019-04-25] MEDS ORDERED: Succinylcholine 200 MG/10 ML MDV ONE (05:49)
[2019-04-25] MEDS ORDERED: Ondansetron 4 MG/2 ML SDV ONE (05:49)
[2019-04-25] MEDS ORDERED: Neostigmine Methylsulfate 1 MG/ML 5 ML Syringe ONE (05:49)
[2019-04-25] MEDS ORDERED: Lactated Ringers 1,000 ML ONE (05:52)
[2019-04-25] MEDS ORDERED: Labetalol 20 MG/4 ML Syringe ONE (05:52)
[2019-04-25] MEDS ORDERED: Meropenem 500 MG SDV ONE (06:06)
[2019-04-25] MEDS ORDERED: Lidocaine 1% with EPINEPHrine 1:100,000 50 ML MDV ONE (06:07)
[2019-04-25] MEDS ORDERED: Bupivacaine 0.5% 50 ML MDV ONE (06:07)
[2019-04-25] MEDS: Ondansetron 4 MG/2 ML SDV IVPUSH PRN ×2 (06:15→14:52)
[2019-04-25] MEDS ORDERED: cefOXitin 2 GM in Sodium Chloride 0.9% 50 ML IV ONE (09:00)
[2019-04-25] MEDS ORDERED: Ketamine 50 MG in Sodium Chloride 0.9% 49.5 ML IV SCH (09:00)
[2019-04-25] MEDS ORDERED: Magnesium Sulfate 7 GM in Sodium Chloride 0.9% 250 ML IV ONE (09:00)
[2019-04-25] MEDS ORDERED: Magnesium Sulfate 3.3 GM in Sodium Chloride 0.9% 100 ML IV SCH (09:00)
[2019-04-25] MEDS ORDERED: cefOXitin 2 GM in Premix Bag 1 BAG IV ONE (09:00)
[2019-04-25] MEDS ORDERED: Ketamine 500 MG/5 ML MDV IV SCH (09:00)
[2019-04-25] MEDS ORDERED: fentaNYL 100 MCG/2 ML SDV ONE (10:53)
[2019-04-25] MEDS ORDERED: hydrOXYzine HCL 100 MG/2 ML SDV IM ONE (11:05)
[2019-04-25] MEDS ORDERED: Naloxone 0.4 MG/ML SDV IVPUSH PRN (11:14)
[2019-04-25] MEDS ORDERED: Naloxone 0.4 MG/ML SDV IV PRN (11:16)
[2019-04-25] MEDS: HYDROmorphone/Normal Saline 15 MG/30 ML PCA IV PRN ×2 (11:29→15:48)
[2019-04-25] MEDS ORDERED: Metoclopramide 10 MG/2 ML SDV IVPUSH PRN (11:30)
[2019-04-25] MEDS ORDERED: Labetalol 20 MG/4 ML Syringe IVPUSH PRN (11:30)
[2019-04-25] MEDS ORDERED: Acetaminophen 500 MG Tab PO PRN (11:30)
[2019-04-25] MEDS ORDERED: SCOPOLAMINE PATCH CHECK TOP SCH (11:30)
[2019-04-25] MEDS ORDERED: Cyclobenzaprine 10 MG Tab PO PRN (11:30)
[2019-04-25] MEDS ORDERED: diphenhydrAMINE 50 MG/ML SDV IVPUSH PRN (11:30)
[2019-04-25] MEDS ORDERED: hydrOXYzine HCL 100 MG/2 ML SDV IM PRN (11:30)
[2019-04-25] MEDS: Dextrose 5%-Lactated Ringers 1,000 ML IV SCH (12:05)
[2019-04-25] MEDS ORDERED: Pantoprazole 40 MG Vial IVPUSH SCH (14:00)
[2019-04-25] MEDS: cefOXitin 2 GM in Premix Bag 1 BAG IV SCH ×2 (14:12→20:18)
[2019-04-25] MEDS: ClonazePAM 0.5 MG Tab PO SCH ×2 (14:25→20:20)
[2019-04-25] MEDS: Gabapentin 300 MG Cap PO SCH ×2 (14:29→20:19)
[2019-04-25] MEDS: buPROPion 100 MG Tab PO SCH ×2 (14:29→20:19)
[2019-04-25] MEDS: Mometasone Furoate Nasal Spray 17 GM Canister NASBOTH SCH (14:36)
[2019-04-25] MEDS: Acetaminophen 500 MG Tab PO SCH ×2 (17:09→22:46)
[2019-04-25] MEDS: Heparin Sodium 5,000 Units/ML Vial SUBCUT SCH (17:33)
[2019-04-25] MEDS: MVI, Adult with Vitamin K 10 ML, Thiamine 200 MG, Chromium/Copper/Mang/Selen/Zn 1 ML in... IV SCH ×4 (18:08)
[2019-04-25] MEDS: FLUoxetine 20 MG Cap PO SCH (20:19)
[2019-04-25] MEDS: Celecoxib 200 MG Cap PO SCH (20:20)
[2019-04-26] MEDS: Dextrose 5%-Lactated Ringers 1,000 ML IV SCH ×2 (00:49→07:30)
[2019-04-26] MEDS: cefOXitin 2 GM in Premix Bag 1 BAG IV SCH ×3 (02:55→13:34)
[2019-04-26] MEDS ORDERED: Iopamidol 612 MG/ML 50 ML SDV PO STA (03:47)
[2019-04-26] MEDS: Heparin Sodium 5,000 Units/ML Vial SUBCUT SCH ×2 (05:55→17:56)
[2019-04-26] MEDS: Acetaminophen 500 MG Tab PO SCH ×3 (05:55→21:19)
[2019-04-26] MEDS ORDERED: Bisacodyl 5 MG Tab PO SCH (09:00)
[2019-04-26] MEDS ORDERED: FLUoxetine 20 MG Cap PO SCH (09:00)
--- NOTE | 2019-04-26 09:00 | PN ---
DATE OF SERVICE: 04/26/2019 SUBJECTIVE: Radha is postoperative day #1. Her vital signs have been stable. She has been up, ambulating. Oral intake 990 and urine output via Rios catheter is 2074. MAGALYS drain put out 330 of a light red drainage. OBJECTIVE: GENERAL: Radha Choi is a 38-year-old female. She is alert and orientated. VITAL SIGNS: TPR 98, 87, 18, blood pressure 124/78. HEENT: Negative. NECK: Supple. HEART: Regular rate and rhythm. LUNGS: Clear. ABDOMEN: Dressings dry and intact. Abdominal binder is on. EXTREMITIES: Without peripheral edema. SCDs are on. ASSESSMENT: Exploratory laparotomy with: 1. Right colectomy. 2. Small bowel resection. 3. Small bowel strictureplasty. 4. Closure of small bowel volvulus, closure of internal hernia. 5. Placement of Interceed mesh for postop diagnosis of cecal volvulus, small bowel volvulus with focal stricture, Valerie limb at jejunojejunostomy, separate stricture mid common limb of the small bowel. Date of surgery: 05/13/2019. Surgeon: Brandon Youngblood MD. PLAN: 1. Discontinue Rios catheter. 2. Step 2 gastric bypass diet. 3. Iron gluconate 250 mg IV today and repeat in a.m. 4. Dulcolax 10 mg tablets b.i.d. orally until the patient has bowel movement. 5. To evaluate p.r.n. or in a.m. Kiley Perdue PA-C /[id number]
[2019-04-26] MEDS: Docusate Sodium 100 MG Cap PO SCH ×2 (09:48→21:17)
[2019-04-26] MEDS: FLUoxetine 20 MG Cap PO SCH ×2 (09:48→21:18)
[2019-04-26] MEDS: Pantoprazole 40 MG Tab.CR PO SCH (09:48)
[2019-04-26] MEDS: buPROPion 100 MG Tab PO SCH ×3 (09:48→21:18)
[2019-04-26] MEDS: Celecoxib 200 MG Cap PO SCH ×2 (09:48→21:17)
[2019-04-26] MEDS: Gabapentin 300 MG Cap PO SCH ×3 (09:48→21:18)
[2019-04-26] MEDS: Bisacodyl 5 MG Tab PO SCH ×2 (09:49→21:18)
[2019-04-26] MEDS: Mometasone Furoate Nasal Spray 17 GM Canister NASBOTH SCH (09:49)
[2019-04-26] MEDS: ClonazePAM 0.5 MG Tab PO SCH ×3 (09:52→21:25)
[2019-04-26] MEDS: Sodium Ferric Gluconate Cmplex 250 MG in Sodium Chloride 0.9% 100 ML IV SCH (11:01)
--- NOTE | 2019-04-26 12:27 | CR ---
[facility] CLINICAL HISTORY: Gastric bypass FINDINGS: Patient swallowed water-soluble contrast. There is passage into the distal esophagus and stomach remanent. There is no evidence of obstruction or leakage. Delayed image showed contrast into the jejunum. Impression: Status post gastric bypass with no evidence of obstruction or extravasation
[2019-04-26] MEDS: MVI, Adult with Vitamin K 10 ML, Thiamine 200 MG, Chromium/Copper/Mang/Selen/Zn 1 ML in... IV SCH ×4 (17:46)
[2019-04-26] MEDS ORDERED: cefOXitin 2 GM in Sodium Chloride 0.9% 50 ML IV SCH (20:00)
[2019-04-27] MEDS: Dextrose 5%-Lactated Ringers 1,000 ML IV SCH ×2 (00:21→05:31)
[2019-04-27] MEDS: Heparin Sodium 5,000 Units/ML Vial SUBCUT SCH ×2 (05:32→18:07)
[2019-04-27] MEDS: Acetaminophen 500 MG Tab PO SCH ×3 (05:45→21:27)
[2019-04-27] MEDS ORDERED: Dextrose 5%-Lactated Ringers 1,000 ML IV SCH (08:00)
[2019-04-27] MEDS: buPROPion 100 MG Tab PO SCH ×3 (08:40→21:28)
[2019-04-27] MEDS: Pantoprazole 40 MG Tab.CR PO SCH (08:40)
[2019-04-27] MEDS: Docusate Sodium 100 MG Cap PO SCH ×2 (08:40→21:27)
[2019-04-27] MEDS: Celecoxib 200 MG Cap PO SCH ×2 (08:40→21:27)
[2019-04-27] MEDS: Bisacodyl 5 MG Tab PO SCH ×2 (08:40→21:32)
[2019-04-27] MEDS: Mometasone Furoate Nasal Spray 17 GM Canister NASBOTH SCH (08:41)
[2019-04-27] MEDS: Gabapentin 300 MG Cap PO SCH ×3 (08:41→21:27)
[2019-04-27] MEDS: ClonazePAM 0.5 MG Tab PO SCH ×3 (08:47→21:32)
[2019-04-27] MEDS: FLUoxetine 20 MG Cap PO SCH ×2 (08:47→21:28)
[2019-04-27] MEDS ORDERED: Cyanocobalamin (Vitamin B12) 1,000 MCG/ML SDV IM ONE (09:00)
[2019-04-27] MEDS ORDERED: FLUoxetine 20 MG Cap PO SCH (09:00)
[2019-04-27] MEDS: Sodium Ferric Gluconate Cmplex 250 MG in Sodium Chloride 0.9% 100 ML IV SCH (10:58)
[2019-04-27] MEDS: HYDROmorphone 2 MG Tab PO PRN ×3 (11:18→19:43)
[2019-04-27] MEDS: MVI, Adult with Vitamin K 10 ML, Thiamine 200 MG, Chromium/Copper/Mang/Selen/Zn 1 ML in... IV SCH ×4 (15:31)
[2019-04-28] MEDS: HYDROmorphone 2 MG Tab PO PRN ×3 (04:21→09:17)
[2019-04-28] MEDS: Acetaminophen 500 MG Tab PO SCH (05:56)
[2019-04-28] MEDS: Pantoprazole 40 MG Tab.CR PO SCH (07:34)
[2019-04-28] MEDS: Gabapentin 300 MG Cap PO SCH (09:18)
[2019-04-28] MEDS: Celecoxib 200 MG Cap PO SCH (09:19)
[2019-04-28] MEDS: Docusate Sodium 100 MG Cap PO SCH (09:19)
[2019-04-28] MEDS: Bisacodyl 5 MG Tab PO SCH (09:19)
[2019-04-28] MEDS: buPROPion 100 MG Tab PO SCH (09:19)
[2019-04-28] MEDS: FLUoxetine 20 MG Cap PO SCH (09:20)
[2019-04-28] MEDS: Mometasone Furoate Nasal Spray 17 GM Canister NASBOTH SCH (09:20)
[2019-04-28] MEDS: ClonazePAM 0.5 MG Tab PO SCH (09:24)
--- NOTE | 2019-04-28 12:53 | DISCH ---
ADMISSION DIAGNOSES: Partial small bowel obstruction, status post Valerie-en-Y gastric bypass surgery, unspecified surgical malabsorption, B12 deficiency, vitamin D deficiency, reactive hypoglycemia, allergic rhinitis, migraine headaches, panic disorder without agoraphobia, polycystic ovary syndrome, plantar fasciitis. DISCHARGE DIAGNOSES: Exploratory laparotomy with: 1. Right colectomy. 2. Small bowel resection. 3. Small-bowel strictureplasty. 4. Closure of small bowel volvulus, closure of internal hernia. 5. Placement of Interceed mesh. POSTOPERATIVE DIAGNOSES: 1. Cecal volvulus. 2. Small bowel volvulus with focal stricture at the Valerie limb at the jejunojejunostomy. 3. Separate stricture mid common limb of the small bowel. 4. Date of surgery: 04/25/2019. Surgeon: Brandon Youngblood MD. HISTORY: Radha Choi is a 38-year-old female who was seen in the emergency room, [place], [place], and was transferred to [place], [place]. After preoperative evaluation and discussion of possible risks and possible complications, she wished to proceed with surgical procedure. HOSPITAL COURSE: Radha had her surgery on 04/25/2019. She had no operative complications. On postoperative day #1, her Rios catheter was discontinued. She was started on step 2 gastric bypass diet. She was given her 1st dose of IV iron gluconate for a low ferritin and started on bowel stimulation. On 04/27/2019, she received her 2nd dose of IV iron gluconate 250 mg. She started having bowel movements which were more maroon in color. Heparin was discontinued. The maroon stools were thought to be from bleeding at the staple lines and nonacute. Oral intake and output adequate, bowel movements as stated. Pain controlled. Vital signs stable and she did receive dietary instruction. On 04/28/2019, she was able to be discharged to home without any complications. PHYSICAL EXAMINATION: GENERAL: Radha Choi is a 38-year-old female. VITAL SIGNS: Height is 5 feet 6 inches, weight is 244 pounds. TPR is 96.8, 87, 16, blood pressure 113/59. HEENT: Negative. NECK: Supple. HEART: Regular rate and rhythm. LUNGS: Clear. ABDOMEN: Aquacel dressing was removed. Slava intact. Incision looks good. MAGALYS drain will be removed prior to discharge. Abdominal binder has been on. EXTREMITIES: Without peripheral edema. LAST LABORATORY DATA: Hemoglobin 10.6, hematocrit 33.2. Total protein 5.3, albumin is 2.4. DISPOSITION: Discharged to home. CONDITION: Stable and improving. FOLLOWUP: Appointment with Kiley Perdue PA-C, at [facility] on 05/05/2019 at 10:15 a.m. She is to come at 10 a.m. and have a CBC and CMP drawn before appointment. HOME MEDICATIONS: Tylenol Extra Strength 1000 mg every 8 hours scheduled and Dilaudid 2 mg every 6 hours p.r.n. pain #28. She is to resume her home medications, Klonopin 0.5 mg 3 times a day p.r.n. anxiety; vitamin B12 1000 mcg sublingual daily; Flexeril 10 mg oral daily p.r.n. muscle spasms; Prozac 40 mg oral twice daily; Vitron-C 1 tablet oral daily; Neurontin 600 mg 3 times a day; Galcanezumab/Emgality Pen 120 mg subcutaneous once a month; Levsin 1 tablet sublingual every 4 hours p.r.n. esophageal spasms; probiotic 1 daily; magnesium 200 mg oral daily; Nasonex 1 spray in each nostril once daily p.r.n. allergies; multivitamin 1 chewable twice daily; naltrexone discontinue while on pain medication; Naratriptan HCL 2.5 mg oral daily, may repeat in 4 hours p.r.n.; Zofran 4 mg oral every 8 hours p.r.n. nausea; Compazine 10 mg oral daily p.r.n. nausea; vitamin B complex 1 daily; and Wellbutrin 100 mg 3 times a day. DIET: Step 3 gastric bypass diet. Drink 8 to 10 glasses of water a day. ACTIVITY: No lifting over 10 pounds for 6 weeks. Walk at least 6 times daily inside your home. Driving: Do not drive for 1 week and while on pain medication. Shower/bathing: May shower. DISCHARGE INSTRUCTIONS: Notify provider if any fever, increased pain, nausea, vomiting. Keep site clean and dry. Wear abdominal binder for 6 weeks and then as tolerated. SPECIAL INSTRUCTIONS: Use incentive spirometer 10 times every hour while awake for 1 week. Reminded the patient to not take the naltrexone while on the Dilaudid medication. CC: PCP Irineo Lugo, [place] [phone]
--- NOTE | 2019-04-29 09:47 | PN ---
DATE OF SERVICE: 04/27/2019 The patient has been afebrile with stable vital signs. She wound up with a delayed primary closure today and had her drains taken out. We will go up to step 3 diet today, oral pain medication, and initiate some bowel stimulation. She may be ready for home in the next day or 2. Brandon Youngblood MD /[id number]
--- NOTE | 2019-04-29 15:32 | PN ---
DATE OF SERVICE: 04/27/2019 The patient has been afebrile with stable vital signs. She is tolerating the step-2 diet satisfactorily. We will go up to a step-3 diet today, back down the IV rate, and we will switch her over to oral pain medication. She may be ready for discharge home tomorrow. Brandon Youngblood MD /[id number]
--- NOTE | 2019-05-03 13:14 | OR ---
DATE OF PROCEDURE: 04/25/2019 SURGEON: Brandon Youngblood MD PREOPERATIVE DIAGNOSIS: Small bowel volvulus. POSTOPERATIVE DIAGNOSES: 1. Small bowel volvulus with focal stricture of the Valerie limb at jejunojejunostomy. 2. Cecal volvulus. 3. Separate stricture involving the mid portion of small bowel common limb. OPERATIVE PROCEDURE: Exploratory laparotomy with: 1. Right colectomy (67683). 2. Small bowel resection (98312). 3. Small bowel stricturoplasty (28601). 4. Reduction of small bowel volvulus and closure of internal hernia (68323). 5. Placement of Interceed mesh to limit recurrent adhesion formation between pelvic and abdominal wall and underlying viscera (57640). ANESTHESIA: General. INDICATION FOR PROCEDURE: This is a 38-year-old female presenting with a picture of a small bowel volvulus. CT scan also appeared to show a significant cecal volvulus. The patient was transferred overnight from [place] for bariatric surgical care. The plan is to proceed with exploratory laparotomy, reduction of volvulus, and bowel resections as necessary. The patient still is substantially overweight, and as discussed with the patient preoperatively, if the jejunojejunostomy needs to be resected, we could reconstruct this in a manner that she would likely lose some more weight, more or less making the biliopancreatic limb quite a bit longer and the common limb shorter. She is aware this will sometimes result in some frequent loose bowel movements and her nutritional status would need to be carefully followed and that a small number of these cases will need to be revised due to problems with regard to the former 2 issues. Potential risks per se including bleeding, infection, leaks from various GI tract closures, problems with bowel obstruction recurring, as well as the remote possibility of cardiopulmonary, septic, or hemorrhagic complications leading to were discussed, and the patient wishes to proceed. DETAILS OF PROCEDURE: The patient was taken to the operating room and placed in a supine position. After general endotracheal anesthesia was induced, a Rios catheter was inserted, and the abdomen prepped and draped. A midline incision from the umbilicus to slightly more than a handsbreadth toward the xiphoid was made and carried down through the full-thickness of the abdominal wall. Upon entering the peritoneal cavity, the 2 sites of the volvulus were identified. The patient had a cecal volvulus and the cecum was densely distended and had some petechiae on it, indicating that it would at some point likely have perforated. This was then initially reduced. The patient was then also noted to have a volvulus of the small bowel consisting of the area of the jejunojejunostomy underneath the course of the Valerie limb as it passed upward toward the gastric pouch. This was reduced. It was noted the patient at that point had a fixed stricture, likely due to chronic anticoagulation at the point where the Valerie limb entered the jejunojejunostomy. At this point, we then decided to proceed with a right colectomy for treatment of the cecal volvulus, as this would be the most definitive mode of treatment of this problem in a patient this age. The distal small bowel was then divided with a ELSI stapler, as was then the transverse colon. The cecum and ascending colon were then mobilized medially after division of the lateral peritoneal reflection. Likewise, the attachments to the hepatic flexure of colon were divided, and this was mobilized upward. The mesentery between those 2 points was divided with the ELSI morelia with care to avoid injury to underlying right ureter and duodenum. The right colectomy specimen was then delivered from the field. At this point, the ileocolic anastomosis was accomplished between the end of the small bowel and the remaining divided end of the transverse colon. This was accomplished in a side-to- side manner with 2 internal firings of the Endo-ELSI 60 mm stapler, common opening was then closed transversely with the same stapler, and the angles anastomosed, and mesenteric defect approximated with some 3-0 Vicryl stitch. This was also then reinforced with fibrin sealant. At this point, the stricture at the point where the Valerie limb entered the jejunojejunostomy was addressed. The distalmost aspect of the Valerie limb was then divided with the ELSI stapler. As mentioned above, we then reestablished this anatomy with the goal of achieving some additional weight loss. The Valerie limb at this point was measured at 90 cm. A small amount of that had been resected, as it was poorly vascularized after the initial division, with the Valerie limb now being 90 cm from the ileocecal valve level now at the ileocolic anastomosis back 250 cm, thus giving the patient 340 cm of alimentary limb, most of which was the common limb. The biliopancreatic limb at this point was noted to be 320 cm. A side- to-side anastomosis was then accomplished between the Valerie limb and the small bowel again 250 cm proximal to the divided ileum. With this, with an internal firing of the Endo-ELSI 60 mm stapler, common opening was closed transversely with the same stapler, angles anastomosed, and mesenteric defect approximated with some 3-0 Vicryl stitch. Both mesenteric defects were then closed with a 2-0 silk stitch to provide some permanency to the mesenteric closure. Exploration revealed 1 additional area of stricturing likely related to some chronic adhesion formation, which the bulk of those adhesions were taken down, was noted in the mid common limb. This was then treated with a stricturoplasty. The bowel was flipped over on itself and multiple openings in the antimesenteric border and internal firing of the ELSI 60 mm stapler followed by a 30 mm internal firing of the ELSI stapler was undertaken and the common opening was then closed off with a ELSI stapler as well. The angles of anastomosis were reinforced with some 3-0 Vicryl stitch. There was no mesenteric defect in this case to close. The abdomen was then irrigated with antibiotic-containing saline solution. A Mauricio-Jennings drain was then placed through a stab wound in the right upper quadrant and placed along the pericolic gutter on the right side and from there into the pelvis, and after irrigating with meropenem-containing saline solution, no further problems were noted, and the Interceed mesh was then placed underneath the area of the incision, and from there down toward the pelvic wall to limit recurrent adhesion formation. Bilateral transversus abdominis plane blocks had been placed, and the midline fascia was then approximated with #2 Vicryl stitch. This layer was then also anesthetized with some 1% lidocaine mixed with Marcaine. Subcutaneous tissue was then approximated with 2 layers of 3-0 and 4-0 Vicryl stitch and the skin with morelia. Dressing was applied. The patient was taken to the recovery room in satisfactory condition. Brandon Youngblood MD /[id number]
== END 2019-04-28 12:00 | disposition home or self-care (01) | DRG 221 ==
LOC: JP.MS 03:54
PROVIDERS: ADMIT Surgery; ATTEND Surgery
PROC: 0DSH0ZZ Reposition Cecum, Open Approach (ICD-10-PCS; principal; 2019-04-25)
PROC: 0DB80ZZ Excision of Small Intestine, Open Approach (ICD-10-PCS; 2019-04-25)
PROC: 3E0M05Z Introduction of Adhesion Barrier into Peritoneal Cavity, Open Approach (ICD-10-PCS; 2019-04-25)
PROC: 0DTF0ZZ Resection of Right Large Intestine, Open Approach (ICD-10-PCS; 2019-04-25)
DX: K95.89 Other complications of other bariatric procedure (principal); K56.2 Volvulus; K56.600 Partial intestinal obstruction, unspecified as to cause; E66.01 Morbid (severe) obesity due to excess calories; Z88.2 Allergy status to sulfonamides; Z79.899 Other long term (current) drug therapy; Z90.49 Acquired absence of other specified parts of digestive tract; Z87.891 Personal history of nicotine dependence; Z68.39 Body mass index [BMI] 39.0-39.9, adult
CPT/HCPCS: 36415; 74240; 74240-26; 74246-26; 80053; 82728; 83735; 84100; 85025; 85027; 88307; A9270-GY; C9113; J0171; J0330; J0694; J1100; J1170; J1644; J2020; J2185; J2405; J2704; J2710; J2795; J2916; J3010; J3410; J3411; J3420; J3475; J3490; J7050; J7120; J7121; Q9967

== ENCOUNTER 2019-12-20 06:32 | Inpatient (IN) | payer BC ==
[2019-12-20] MEDS ORDERED: Acetaminophen 500 MG Tab PO ONE (06:34)
[2019-12-20] MEDS ORDERED: Gabapentin 300 MG Cap PO ONE (06:34)
[2019-12-20] MEDS ORDERED: Scopolamine 1.5 MG Transdermal Patch TRDERM ONE (06:35)
[2019-12-20] MEDS ORDERED: Bupivacaine 0.5% 50 ML MDV ONE (07:05)
[2019-12-20] MEDS ORDERED: Lidocaine 1% with EPINEPHrine 1:100,000 50 ML MDV ONE (07:06)
[2019-12-20] MEDS ORDERED: fentaNYL 250 MCG/5 ML SDV ONE (07:13)
[2019-12-20] MEDS ORDERED: Rocuronium 50 MG/5 ML Vial ONE (07:14)
[2019-12-20] MEDS ORDERED: Propofol 200 MG/20 ML SDV ONE (07:14)
[2019-12-20] MEDS ORDERED: Glycopyrrolate 0.2 MG/ML 5 ML MDV ONE (07:14)
[2019-12-20] MEDS ORDERED: Ondansetron 4 MG/2 ML SDV ONE (07:14)
[2019-12-20] MEDS ORDERED: Succinylcholine 200 MG/10 ML MDV ONE (07:14)
[2019-12-20] MEDS ORDERED: Neostigmine Methylsulfate 1 MG/ML 5 ML Syringe ONE (07:14)
[2019-12-20] MEDS ORDERED: Dexamethasone 4 MG/ML SDV ONE (07:14)
[2019-12-20] MEDS ORDERED: Dextrose 5%-Lactated Ringers 1,000 ML IV SCH (07:15)
[2019-12-20] MEDS ORDERED: Meropenem 500 MG SDV ONE (07:27)
[2019-12-20] MEDS ORDERED: diphenhydrAMINE 25 MG Cap PO PRN (07:41)
[2019-12-20] MEDS ORDERED: Naloxone 0.4 MG/ML SDV IVPUSH PRN (07:41)
[2019-12-20] MEDS ORDERED: Ondansetron 4 MG/2 ML SDV IVPUSH PRN ×2 (07:41→12:00)
[2019-12-20] MEDS ORDERED: diphenhydrAMINE 50 MG/ML SDV IVPUSH PRN (07:41)
[2019-12-20] MEDS ORDERED: Ketamine 50 MG in Sodium Chloride 0.9% 49.5 ML IV SCH (08:00)
[2019-12-20] MEDS ORDERED: ceFAZolin 2 GM in Premix Bag 1 BAG IV ONE (08:00)
[2019-12-20] MEDS ORDERED: Ketamine 500 MG/5 ML MDV IV SCH (08:00)
[2019-12-20] MEDS ORDERED: Lactated Ringers 1,000 ML ONE (09:12)
[2019-12-20] MEDS: HYDROmorphone/Normal Saline 15 MG/30 ML PCA IV PRN ×2 (09:30→10:49)
[2019-12-20] MEDS ORDERED: hydrOXYzine HCL 100 MG/2 ML SDV IM ONE (10:16)
[2019-12-20] MEDS ORDERED: Cyclobenzaprine 10 MG Tab PO PRN (11:34)
[2019-12-20] MEDS ORDERED: ClonazePAM 0.5 MG Tab PO PRN (11:38)
[2019-12-20] MEDS ORDERED: Acetaminophen 500 MG Tab PO PRN (12:00)
[2019-12-20] MEDS ORDERED: Naloxone 0.4 MG/ML SDV IV PRN (12:00)
[2019-12-20] MEDS ORDERED: Metoclopramide 10 MG/2 ML SDV IVPUSH PRN (12:00)
[2019-12-20] MEDS ORDERED: Albuterol/Ipratropium 3.0-0.5 MG/3 ML Neb Soln INH PRN (12:00)
[2019-12-20] MEDS ORDERED: hydrOXYzine HCL 100 MG/2 ML SDV IM PRN (12:00)
[2019-12-20] MEDS ORDERED: Labetalol 20 MG/4 ML Syringe IVPUSH PRN (12:00)
[2019-12-20] MEDS: Sodium Ferric Gluconate Cmplex 250 MG in Sodium Chloride 0.9% 100 ML IV SCH (12:29)
[2019-12-20] MEDS: buPROPion 100 MG Tab PO SCH ×2 (13:52→21:08)
[2019-12-20] MEDS: Acetaminophen 500 MG Tab PO SCH ×2 (13:52→21:08)
[2019-12-20] MEDS: Midodrine 5 MG Tab PO SCH ×2 (13:53→21:09)
[2019-12-20] MEDS ORDERED: Pantoprazole 40 MG Vial IVPUSH SCH (14:30)
[2019-12-20] MEDS ORDERED: MVI, Adult with Vitamin K 10 ML, Thiamine 200 MG, Chromium/Copper/Mang/Selen/Zn 1 ML in... IV SCH ×4 (16:00)
[2019-12-20] MEDS: KURVELO PO SCH (16:09)
[2019-12-20] MEDS: ceFAZolin 2 GM in Premix Bag 1 BAG IV SCH (16:09)
[2019-12-20] MEDS: diphenhydrAMINE 50 MG/ML SDV IVPUSH PRN (21:00)
[2019-12-20] MEDS: Albuterol/Ipratropium 3.0-0.5 MG/3 ML Neb Soln INH SCH ×2 (21:06→21:21)
[2019-12-20] MEDS: FLUoxetine 20 MG Cap PO SCH (21:09)
[2019-12-20] MEDS: Dextrose 5%-Lactated Ringers 1,000 ML IV SCH (22:19)
[2019-12-21] MEDS: ceFAZolin 2 GM in Premix Bag 1 BAG IV SCH ×2 (00:12→08:30)
[2019-12-21] MEDS: diphenhydrAMINE 50 MG/ML SDV IVPUSH PRN ×3 (02:25→20:30)
[2019-12-21] MEDS: Dextrose 5%-Lactated Ringers 1,000 ML IV SCH (04:38)
[2019-12-21] MEDS: Acetaminophen 500 MG Tab PO SCH (05:16)
[2019-12-21] MEDS ORDERED: Ondansetron 4 MG Tab.DIS PO PRN (07:35)
[2019-12-21] MEDS ORDERED: Dextrose 5%-Lactated Ringers 1,000 ML IV SCH (07:45)
[2019-12-21] MEDS: Celecoxib 200 MG Cap PO SCH ×2 (08:30→20:02)
[2019-12-21] MEDS: FLUoxetine 20 MG Cap PO SCH ×2 (08:31→20:01)
[2019-12-21] MEDS: SCOPOLAMINE PATCH CHECK TOP SCH (08:31)
[2019-12-21] MEDS: Midodrine 5 MG Tab PO SCH ×3 (08:31→20:01)
[2019-12-21] MEDS: KURVELO PO SCH (08:31)
[2019-12-21] MEDS: buPROPion 100 MG Tab PO SCH ×3 (08:31→20:01)
--- NOTE | 2019-12-21 08:42 | PN ---
DATE OF SERVICE: 12/21/2019 SUBJECTIVE: Radha is postoperative day 1. She had 2 doses of Benadryl for itching and she states this morning her itching has resolved. She feels it is from the adhesive on the telemetry pads as the scopolamine patch. Vital signs have been stable. Up ambulating. Pain is controlled with TRANSMISSION SYSTEMS OPERATOR. REVIEW OF SYSTEMS: Remainder of review of systems negative for any pertinent positives and negatives. OBJECTIVE: GENERAL: Radha is a pleasant 39-year-old female. She is alert and orientated. VITAL SIGNS: TPR from 0220; 97.6, 62, 18. Blood pressure 122/64. HEENT: Negative. NECK: Supple. HEART: Regular rate and rhythm. LUNGS: Clear. ABDOMEN: Dressings dry and intact. Abdominal binder is on. EXTREMITIES: Without peripheral edema. ASSESSMENT: Exploratory laparotomy with repair of incarcerated incisional hernia and incarcerated umbilical hernia and lysis of extensive intraabdominal adhesions. Placement of Vicryl mesh for incarcerated incisional and incarcerated umbilical hernia and extensive intraabdominal adhesions. Date of surgery: 12/20/2019. Surgeon: Brandon Youngblood MD. PLAN: 1. Discontinue scopolamine patch. 2. Discontinue telemetry. 3. Discontinue Rios catheter. 4. Decrease IV to 100 mL per hour. 5. Tylenol tablets to be changed to liquid, same dosage. 6. Step 3 gastric bypass diet. 7. Discussion regarding her oral contraceptives, which she has enough for 2 days and someone will be bringing her next packet with them tomorrow. 8. Continue use of incentive spirometer and ambulation. 9. We will evaluate p.r.n. or in a.m. 10.Radha will get her 2nd dose of ferrous sodium gluconate today. She tolerated the one she got yesterday without any problems. Kiley Perdue PA-C /[id number]
[2019-12-21] MEDS: Albuterol/Ipratropium 3.0-0.5 MG/3 ML Neb Soln INH SCH ×4 (10:10→20:02)
[2019-12-21] MEDS: Sodium Ferric Gluconate Cmplex 250 MG in Sodium Chloride 0.9% 100 ML IV SCH (12:00)
[2019-12-21] MEDS ORDERED: Sodium Chloride 0.9% 400 ML IV SCH (12:00)
[2019-12-21] MEDS: TRIMETHOPRIM 100 MG PO SCH (14:16)
[2019-12-21] MEDS: Acetaminophen Soln 650 MG/20.3 ML UD Cup PO SCH ×2 (14:16→22:19)
[2019-12-21] MEDS ORDERED: methylPREDNISolone Sodium Succinate 125 MG/2 ML SDV IVPUSH ONE (14:33)
[2019-12-21] MEDS ORDERED: MVI, Adult with Vitamin K 10 ML, Thiamine 200 MG, Chromium/Copper/Mang/Selen/Zn 1 ML in... IV SCH ×4 (16:00)
[2019-12-21] MEDS: Pantoprazole 40 MG Delayed-Release Granules 1 Packet PO SCH (16:42)
[2019-12-22] MEDS: HYDROmorphone/Normal Saline 15 MG/30 ML PCA IV PRN (02:00)
[2019-12-22] MEDS: Acetaminophen Soln 650 MG/20.3 ML UD Cup PO SCH ×3 (05:47→21:31)
[2019-12-22] MEDS: Albuterol/Ipratropium 3.0-0.5 MG/3 ML Neb Soln INH SCH ×4 (07:44→20:12)
[2019-12-22] MEDS: Celecoxib 200 MG Cap PO SCH ×2 (08:32→20:12)
[2019-12-22] MEDS: Docusate Sodium 100 MG Cap PO SCH ×2 (08:33→20:12)
[2019-12-22] MEDS: Midodrine 5 MG Tab PO SCH ×3 (08:34→20:12)
[2019-12-22] MEDS: Bisacodyl 5 MG Tab PO SCH ×2 (08:34→20:12)
[2019-12-22] MEDS: SCOPOLAMINE PATCH CHECK TOP SCH (08:35)
[2019-12-22] MEDS: FLUoxetine 20 MG Cap PO SCH ×2 (08:36→20:13)
[2019-12-22] MEDS: KURVELO PO SCH (08:37)
[2019-12-22] MEDS: TRIMETHOPRIM 100 MG PO SCH (08:37)
[2019-12-22] MEDS: buPROPion 100 MG Tab PO SCH ×3 (08:39→20:12)
[2019-12-22] MEDS ORDERED: Cyanocobalamin (Vitamin B12) 1,000 MCG/ML SDV IM ONE (09:00)
--- NOTE | 2019-12-22 09:17 | PN ---
DATE OF SERVICE: 12/22/2019 SUBJECTIVE: Radha is postoperative day 2. She states her pain is controlled. She has had 3000 in and 1000 out. IV is saline locked. She has been up ambulating. Vital signs have been stable, and pain has been controlled. REVIEW OF SYSTEMS: Remainder of review of systems negative for any pertinent positives and negatives. OBJECTIVE: GENERAL: Radha Choi is a pleasant 39-year-old female. VITAL SIGNS: TPR at 0710 is 97.9, 65, 16; blood pressure of 112/62. HEENT: Negative. NECK: Supple. HEART: Regular rate and rhythm. LUNGS: Clear. ABDOMEN: Dressings dry and intact. Aquacel dressing is on. EXTREMITIES: Without peripheral edema. ASSESSMENT: Exploratory laparotomy with repair of incarcerated incisional hernia and incarcerated umbilical hernia and lysis of extensive intraabdominal adhesions, placement of Vicryl mesh for incarcerated incisional and incarcerated umbilical hernia, and extensive intraabdominal adhesions. Date of surgery: 12/20/2019. Surgeon: Brandon Youngblood MD. PLAN: 1. Oxycodone 5 mg q.4 hours p.r.n. pain. 2. Discontinue PARENTING SKILLS INSTRUCTOR. 3. Continuous pulse ox and telemetry. 4. Colace 100 mg b.i.d. p.o. 5. Dulcolax 10 mg p.o. tablets every 12 hours. May discontinue when the patient has a bowel movement. 6. Continue use of incentive spirometer. 7. We will evaluate p.r.n. or in a.m. Kiley Perdue PA-C /[id number]
[2019-12-22] MEDS: diphenhydrAMINE 50 MG/ML SDV IVPUSH PRN ×2 (09:24→21:19)
[2019-12-22] MEDS: oxyCODONE 5 MG Tab PO PRN ×3 (11:48→20:11)
[2019-12-22] MEDS: Pantoprazole 40 MG Delayed-Release Granules 1 Packet PO SCH (15:46)
[2019-12-22] MEDS ORDERED: diphenhydrAMINE 25 MG Cap PO PRN (21:25)
[2019-12-23] MEDS: oxyCODONE 5 MG Tab PO PRN ×2 (03:48→09:39)
[2019-12-23] MEDS: Acetaminophen Soln 650 MG/20.3 ML UD Cup PO SCH (05:56)
[2019-12-23] MEDS: Albuterol/Ipratropium 3.0-0.5 MG/3 ML Neb Soln INH SCH (07:01)
[2019-12-23] MEDS: Bisacodyl 5 MG Tab PO SCH (08:51)
[2019-12-23] MEDS: KURVELO PO SCH (08:51)
[2019-12-23] MEDS: TRIMETHOPRIM 100 MG PO SCH (09:39)
[2019-12-23] MEDS: buPROPion 100 MG Tab PO SCH (09:39)
[2019-12-23] MEDS: Docusate Sodium 100 MG Cap PO SCH (09:39)
[2019-12-23] MEDS: Celecoxib 200 MG Cap PO SCH (09:39)
[2019-12-23] MEDS: FLUoxetine 20 MG Cap PO SCH (09:40)
[2019-12-23] MEDS: Midodrine 5 MG Tab PO SCH (09:40)
--- NOTE | 2019-12-23 10:48 | DISCH ---
ADMISSION DIAGNOSES: Incisional and umbilical hernias, status post Valerie-en-Y gastric bypass surgery, unspecified surgical malabsorption, polycystic ovary syndrome, chronic migraine, depression, history of seizures, obesity, BMI 31. DISCHARGE DIAGNOSES: Exploratory laparotomy with repair of incarcerated incisional hernia and incarcerated umbilical hernia, lysis of extensive adhesions, placement of Vicryl mesh. POSTOPERATIVE DIAGNOSES: 1. Incarcerated incisional hernia. 2. Incarcerated umbilical hernia. 3. Extensive intra-abdominal adhesions. 4. Date of surgery: 12/20/2019. Surgeon: Brandon Youngblood MD. HISTORY: Radha Choi is a pleasant 39-year-old female with the above hernias. After preoperative evaluation and discussion of possible risks and possible complications, she wished to proceed with surgical procedure. HOSPITAL COURSE: Radha had her surgery on 12/20/2019. She had no operative complications. On postoperative day #1, she continued with the ANIMATION DIRECTOR. Her Rios catheter was discontinued. On postoperative day #2, she was started on bowel stimulation. Diet was advanced, and she was changed to oral pain medication. On postoperative day #3, she was able to be discharged to home. Vital signs were stable. Activity was good. Pain was well managed. She did have 2 bowel movements. PHYSICAL EXAMINATION: GENERAL: Radha is a pleasant 39-year-old female. VITAL SIGNS: Height is 5 feet 6 inches, weight is 195 pounds. TPR at 0712 is 97; 88; 16; blood pressure 132/63. HEENT: Negative. NECK: Supple. HEART: Regular rate and rhythm. LUNGS: Clear. ABDOMEN: Aquacel dressings on. Abdominal binder is on. EXTREMITIES: Without peripheral edema. DISPOSITION: Discharged to home. CONDITION: Stable and improving. FOLLOWUP: Appointment with Kiley Perdue PA-C, on 12/28/2019 at 11:00 a.m. at [facility]. HOME MEDICATIONS: 1. Celebrex 200 mg b.i.d., #28. 2. Oxycodone 5 mg every 4 hours p.r.n. pain, #42. 3. Tylenol 1000 mg every 8 hours p.r.n. pain. 4. She is to resume her home medication of: a. Acarbose 50 mg twice daily with meals. b. ProAir inhaler 1 puff every 4 hours p.r.n. dyspnea. c. Calcium 1 tablet twice daily. d. Zyrtec 10 mg oral daily. e. Vitamin D3 5000 International Units twice daily. f. Clonazepam 0.5 mg 3 times a day p.r.n. anxiety. g. Vitamin B12 5000 mcg sublingual. h. Flexeril 10 mg oral daily p.r.n. muscle spasms. i. Prozac 40 mg oral twice daily. j. Vitron-C 60 mg b.i.d. k. Neurontin 300 mg oral 3 times a day. l. Emgality Pen 120 subcu every 30 days. m. Hyoscyamine 1 tablet sublingual every 4 hours p.r.n. esophageal spasms. n. Probiotic 1 daily. o. Levonorgestrel and ethinyl estradiol 1 tablet daily. p. Magnesium 200 mg oral daily. q. Midodrine 5 mg oral 3 times a day. r. Mirena IUD. s. Nasonex use as directed. t. Multivitamin 1 tablet 3 times a day. u. Nortriptyline 2.5 mg p.r.n. migraine, repeat in 4 hours if needed. I. Nystatin cream 1 topical daily p.r.n. rash. v. Zofran ODT 4 mg every 8 hours. I. Pantothenic acid 500 mg oral daily. w. Papaya Enzyme 1 tablet p.r.n. x. Klor-Con 20 mEq 3 times a day. aa. Compazine 10 mg oral daily. ab. Trimethoprim 100 mg oral daily. ac. Vitamin B complex 1 tablet oral daily. ad. Wellbutrin 100 mg oral 3 times a day. ae. Discontinue naltrexone while on oxycodone. DIET: Step 3 gastric bypass diet. Drink 8 to 10 glasses of water a day. ACTIVITY: No lifting greater than 10 pounds for 6 weeks. Other activity: Walk at least 6 times daily inside your home. Driving: Do not drive for 1 week and while on pain medication. Shower/bathing: May shower daily. DISCHARGE INSTRUCTIONS: Notify provider if any fever, increased pain, swelling, redness, drainage, nausea, vomiting. Keep site clean and dry. Wear abdominal binder for 6 weeks and then as tolerated. Use incentive spirometer 10 times every hour while awake.
--- NOTE | 2019-12-24 14:17 | OR ---
DATE OF PROCEDURE: 12/20/2019 SURGEON: Brandon Youngblood MD PREOPERATIVE DIAGNOSIS: Incisional hernia. POSTOPERATIVE DIAGNOSES: 1. Incarcerated incisional hernia. 2. Incarcerated umbilical hernia. 3. Extensive intraabdominal adhesions. OPERATIVE PROCEDURES: Exploratory laparotomy with: 1. Repair of incarcerated incisional hernia with mesh (51320, 42692). 2. Repair of incarcerated umbilical hernia with mesh (44995). 3. Placement of Vicryl mesh to limit recurrent adhesion formation between pelvic and abdominal wall and underlying viscera (10058). ANESTHESIA: General. TETRYL SCREEN OPERATOR: Kiley Perdue PA-C INDICATIONS FOR PROCEDURE: This is a 39-year-old female, presenting with an increasingly symptomatic incisional hernia located in the lower aspect of the upper midline incision. Plan is to proceed with an open laparotomy with repair of the incisional hernia with mesh. Potential risks of the procedure including bleeding, infection, injury to underlying viscera, problems with the hernia recurring or mesh becoming infected were reviewed, and the patient wishes to proceed. DETAILS OF PROCEDURE: The patient was taken to the operating room and placed in a supine position. After general endotracheal anesthesia was induced, a Rios catheter was inserted, and the abdomen prepped and draped. Previous upper midline incision was then reused and carried down through the skin, subcutaneous tissue. Hernia sac was then identified and dissected free down to the level of fascia circumferentially. Left side was then opened. It was noted to contain some incarcerated omentum and transverse colon within that. This was dissected free off the hernia sac. Now, the hernia sac was then excised flush with the fascia. Inferior to that, there was also noted to be a separate umbilical hernia that had a tongue of omentum incarcerated within it as well. This was dissected free. A clear plane along the abdominal wall away from the hernia was then established with some additional adhesiolysis. The Ventrio ST hernia patch measuring 22.1 x 27.1 cm was selected. At 5 cm intervals around the circumference, 2-0 Vicryl sutures were placed on the polypropylene side of the mesh. At the point where those sutures would be pulled up, small stab wounds were made in the abdominal wall and the mesh was then soaked in an antibiotic- containing saline solution. The upper half of the sutures were then placed and pulled up through the abdominal wall, and at that point, a 12-inch square of Vicryl mesh was placed underneath the mesh, then along the abdominal and pelvic haskins more inferiorly. Remainder of the sutures were then pulled up, thus securing the mesh well away from the fascial edges circumferentially. These sutures were then tied, and the mesh was then further secured with titanium tacking screws placed between the mesh and the abdominal wall on the underside of the mesh where there was a flap made to protect the abdominal screws from creating adhesions. At this point, no further problems were noted. The patient then received bilateral transversus abdominis plane blocks, and the fascia was then anesthetized with 0.5% Marcaine mixed with lidocaine. Fascia was then approximated with #2 Vicryl stitch and the subcutaneous tissue with 2 layers of 3-0 and 4-0 Vicryl stitch and the skin with morelia. Dressing was applied. The patient was taken to the recovery room in satisfactory condition. Physician library technical assistant, Kiley Perdue, played an essential role in assisting in this case, helping to position the patient, retract structures as needed, as well as suturing and cutting sutures when indicated. Her presence improved patient safety and decreased operative time. Brandon Youngblood MD /[id number]
== END 2019-12-23 10:30 | disposition home or self-care (01) | DRG 227 ==
LOC: JP.SDS 06:32 → JP.SDSSCHI 06:32 → JP.MS 09:50 → EDSTATUS 12:15
PROVIDERS: ADMIT Surgery; ATTEND Surgery
PROC: 0WUF0JZ Supplement Abdominal Wall with Synthetic Substitute, Open Approach (ICD-10-PCS; principal; 2019-12-20)
PROC: 0WUF0JZ Supplement Abdominal Wall with Synthetic Substitute, Open Approach (ICD-10-PCS; 2019-12-20)
PROC: 3E0M05Z Introduction of Adhesion Barrier into Peritoneal Cavity, Open Approach (ICD-10-PCS; 2019-12-20)
DX: K43.0 Incisional hernia with obstruction, without gangrene (principal); K42.0 Umbilical hernia with obstruction, without gangrene; K66.0 Peritoneal adhesions (postprocedural) (postinfection); F32.9 Major depressive disorder, single episode, unspecified; K90.9 Intestinal malabsorption, unspecified; N92.1 Excessive and frequent menstruation with irregular cycle; M54.9 Dorsalgia, unspecified; F41.0 Panic disorder [episodic paroxysmal anxiety]; E66.9 Obesity, unspecified; G43.909 Migraine, unspecified, not intractable, without status migrainosus; H10.12 Acute atopic conjunctivitis, left eye; J31.0 Chronic rhinitis; R29.90 Unspecified symptoms and signs involving the nervous system; Z90.49 Acquired absence of other specified parts of digestive tract; Z87.891 Personal history of nicotine dependence; Z79.899 Other long term (current) drug therapy; Z88.2 Allergy status to sulfonamides; Z91.09 Other allergy status, other than to drugs and biological substances; Z68.31 Body mass index [BMI] 31.0-31.9, adult
CPT/HCPCS: 36415; 80053; 81025; 83735; 84100; 85025; 88302; 94640; 94762; A9270-GY; C1713; C1781; C9113; J0171; J0330; J0690; J1100; J1170; J1200; J2020; J2185; J2405; J2704; J2710; J2795; J2916; J2930; J3010; J3410; J3411; J3420; J3490; J7030; J7040; J7050; J7120; J7121; J7620-GY

== ENCOUNTER 2020-03-16 06:02 | Day surgery (SDC) | payer BC ==
[2020-03-16] MEDS ORDERED: Dextrose 5%-Lactated Ringers 1,000 ML IV SCH (07:00)
[2020-03-16] MEDS ORDERED: Propofol 200 MG/20 ML SDV ONE ×2 (07:08→08:48)
[2020-03-16] MEDS ORDERED: Midazolam 1 MG/ML 2 ML SDV ONE (07:08)
[2020-03-16] MEDS ORDERED: fentaNYL 100 MCG/2 ML SDV ONE (07:08)
--- NOTE | 2020-03-19 12:21 | OR ---
DATE OF PROCEDURE: 03/16/2020 SURGEON: Brandon Youngblood MD PREOPERATIVE DIAGNOSIS: Recent rectal bleeding. POSTOPERATIVE DIAGNOSIS: Recent rectal bleeding associated with excoriated hemorrhoids, but otherwise normal colonoscopic examination. OPERATIVE PROCEDURE: Flexible colonoscopy. ANESTHESIA: IV sedation. INDICATION FOR PROCEDURE: The patient presents with some recent episodes of rectal bleeding. By history, this is most likely related to hemorrhoids, but to rule out any other more serious pathology, a colonoscopy is to be undertaken. Potential risks of the procedure including bleeding and perforation were discussed, and the patient wishes to proceed. DETAILS OF PROCEDURE: The patient was taken to the operating room and placed in a left lateral decubitus position. IV sedation was administered after which the initial digital rectal exam was performed. It was unremarkable. The colonoscope was then passed into the rectum with retroflexion revealing some excoriated hemorrhoidal columns. None of these were actively bleeding, but certainly would be candidates for some intermittent bleeding in the recent past. The scope was eventually passed to the cecum. The prep was somewhat marginal, particularly in the distal aspect of the colon and rectum with a fairly large amount of liquid stool present. Overall, the vast majority of the mucosal surfaces were eventually seen. There was no blood or bleeding, no areas of diverticular disease or colitis, and no polyps or other signs of neoplasia. The scope was then withdrawn, the above findings reconfirmed, and the procedure was then concluded. The patient is a bariatric surgery patient and will be following up with Kiley Perdue in roughly 3 months. If she, in the interim, continues to have significant bleeding, an appointment with Dr. Youngblood can be made for hemorrhoid banding in the clinic. Brandon Youngblood MD /[id number]
== END 2020-03-16 10:13 | disposition home or self-care (01) ==
LOC: JP.SDS 06:02
PROVIDERS: ATTEND Surgery
DX: K62.5 Hemorrhage of anus and rectum (principal); K64.9 Unspecified hemorrhoids; F41.9 Anxiety disorder, unspecified
CPT/HCPCS: 45378; 81025; J2250; J2704; J3010; J7121

== ENCOUNTER 2020-04-27 15:02 | Inpatient (IN) | payer BC ==
[2020-04-27] MEDS ORDERED: Sodium Chloride 0.9% 10 ML Syringe FLUSH PRN (15:12)
[2020-04-27] MEDS ORDERED: Ondansetron 4 MG/2 ML SDV IVPUSH PRN (15:12)
[2020-04-27] MEDS ORDERED: Albuterol 8 GM Inhaler INH PRN (15:20)
[2020-04-27] MEDS ORDERED: Cyclobenzaprine 10 MG Tab PO PRN (15:20)
[2020-04-27] MEDS ORDERED: HYDROmorphone 0.5 MG/0.5 ML Syringe IVPUSH PRN (15:29)
[2020-04-27] MEDS ORDERED: HYDROmorphone 1 MG/ML Syringe IVPUSH PRN (15:30)
[2020-04-27] MEDS ORDERED: Hyoscyamine 0.125 MG Tab.SL SL PRN (15:40)
[2020-04-27] MEDS ORDERED: SUMAtriptan 50 MG Tab PO PRN (15:43)
--- NOTE | 2020-04-27 15:44 | PCM.HP.2 ---
H&P History of Present Illness - General Date of Service: 04/27/20 Admit Problem/Dx: Admission Diagnosis/Problem Admission Diagnosis/Problem Partial small bowel obstruction Source of Information: Patient History Limitations: Reports: No Limitations - History of Present Illness Initial Comments - Free Text/Narative: Radha states she has been feeling great until around 8:00 am this morning and she was drinking her protein shake and she developed a severe sharp-crampy pain in her mid epigastric area that radiated to her back. Associated with some nausea but no vomiting. Last BM was yesterday. No other associated signs and symptoms. Radha called the clinic and was instructed to go to the nearest ED which she did and was transferred to [facility]. CT Scan showed: partial twisting of mesentery - post - surgical vs internal hernia Intervally resolved prior high grade small bowel obstruction Redundant distended signoid colon without ammon volvulus. - Related Data Allergies/Adverse Reactions: Allergies Allergy/AdvReac Type Severity Reaction Status Date / Time adhesive tape Allergy Rash Verified 03/16/20 06:23 nitrofurantoin Allergy Other Verified 03/16/20 06:23 [From Macrodantin] Sulfa (Sulfonamide Allergy Itching Verified 03/16/20 06:23 Antibiotics) ferrous gluconate AdvReac Intermediate Rash Verified 03/16/20 06:23 Home Medications: Home Meds Acarbose 25 mg PO ASDIRECTED PRN 03/16/20 [History] Acarbose 50 mg PO BID 03/16/20 [History] Albuterol Sulfate [Proair Hfa] 8.5 gm IH DAILY PRN 03/16/20 [History] Calcium Carb/Vitamin D3/Vit K1 [Calcium + D Soft Chewable Tab] 2 each PO BID 03/16/20 [History] Cetirizine [ZyrTEC] 10 mg PO DAILY 03/16/20 [History] Cholecalciferol (Vitamin D3) [Vitamin D3] 5,000 unit PO DAILY 03/16/20 [History] ClonazePAM [KlonoPIN] 0.5 mg PO DAILY 03/16/20 [History] Cyanocobalamin (Vitamin B12) [Vitamin B12] 1,000 mcg PO DAILY 03/16/20 [History] Cyclobenzaprine HCl 10 mg PO DAILY PRN 03/16/20 [History] FLUoxetine HCl [Fluoxetine] 40 mg PO DAILY 03/16/20 [History] Gabapentin [Neurontin] 300 mg PO TID 03/16/20 [History] Galcanezumab-Gnlm [Emgality] 120 mg SQ .QMONTHLY 03/16/20 [History] Hyoscyamine [Levsin] 0.125 mg PO Q4HR PRN 03/16/20 [History] Iron,Carbonyl [Iron Chews] 15 mg PO BID 03/16/20 [History] L.acidoph,Paracasei, B.lactis [Probiotic] 1 each PO DAILY 03/16/20 [History] Magnesium 400 mg PO BID 03/16/20 [History] Midodrine 5 mg PO TID 03/16/20 [History] Mometasone Furoate 50 mcg PO BID 03/16/20 [History] Multivitamin with Minerals [Multiple Vitamin] 1 tab PO TID 03/16/20 [History] Naltrexone 25 mg PO BID 03/16/20 [History] Naratriptan HCl 1 mg PO DAILY PRN 03/16/20 [History] Nystatin 1 each TOP ASDIRECTED PRN 03/16/20 [History] Ondansetron [Zofran ODT] 4 mg PO Q6H PRN 03/16/20 [History] Papaya [Papaya Enzyme] 4 each PO DAILY PRN 03/16/20 [History] Prochlorperazine [Compazine] 10 mg PO DAILY PRN 03/16/20 [History] Trimethoprim 100 mg PO DAILY 03/16/20 [History] Vitamin B Complex 1 each PO DAILY 03/16/20 [History] buPROPion [Wellbutrin] 100 mg PO TID 03/16/20 [History] Past Medical History HEENT History: Reports: Allergic Rhinitis, Sinusitis Cardiovascular History: Reports: Other (See Below) Other Cardiovascular History: POTS postural orthostatic tachycardia syndrome Respiratory History: Reports: Bronchitis, Recurrent Gastrointestinal History: Reports: Cholelithiasis, Chronic Diarrhea, GERD, Hiatal Hernia, Other (See Below) Other Gastrointestinal History: incisional hernia Genitourinary History: Reports: UTI, Recurrent [employer] History: Reports: Dysfunctional Uterine Bleeding, Polycystic Ovaries, , Spontaneous Musculoskeletal History: Reports: Back Pain, Chronic, Fracture, Other (See Below) Other Musculoskeletal History: Yuniel carpal tunnel Neurological History: Reports: Migraines, Seizure, Other (See Below) Other Neuro History: Non epileptic spells, 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 ) Psychiatric History: Reports: Anxiety, Depression, Panic Attack, PTSD Endocrine/Metabolic History: Reports: Obesity/BMI 30+ Hematologic History: Reports: Anemia, B12 Deficiency, Iron Deficiency Dermatologic History: Reports: Other (See Below) Other Dermatologic History: rash under abdominal fold, rosacea - Infectious Disease History Infectious Disease History: Reports: Chicken Pox - Past Surgical History HEENT Surgical History: Reports: LASIK, Oral Surgery Cardiovascular Surgical History: Reports: None Respiratory Surgical History: Reports: None GI Surgical History: Reports: Appendectomy, Bariatric Procedure, Cholecystectomy, Hernia, Abdominal, Jeanette Fundoplication, Other (See Below) Other GI Surgeries/Procedures: RNY , resection of part of small and large intestine "because of a hernia" Female Surgical History: Reports: None Endocrine Surgical History: Reports: None Neurological Surgical History: Reports: None Musculoskeletal Surgical History: Reports: Other (See Below) Other Musculoskeletal Surgeries/Procedures:: Left wrist fx/plate Dermatological Surgical History: Reports: Skin Biopsy Social & Family History - Family History Family Medical History: No Pertinent Family History - Caffeine Use Caffeine Use: Reports: Coffee, Soda, Tea H&P Review of Systems - Review of Systems: Review Of Systems: Comprehensive ROS is negative, except as noted in HPI. Exam - Exam Exam: See Below - Vital Signs Vital Signs: Last Vital Signs Temp 97.2 F 04/27/20 15:07 Pulse 73 04/27/20 15:07 Resp 18 04/27/20 15:07 BP 106/53 L 04/27/20 15:07 Pulse Ox 97 04/27/20 15:07 - Exam Quality Assessment: DVT Prophylaxis General: Alert, Oriented, Mild Distress HEENT: PERRLA Neck: Supple, Trachea Midline Lungs: Clear to Auscultation, Normal Respiratory Effort Cardiovascular: Regular Rate, Regular Rhythm GI/Abdominal Exam: Soft, Guarding, Tender (in mid epigastric area ) (Female) Exam: Deferred Rectal (Female) Exam: Deferred Back Exam: Normal Inspection Extremities: Normal Inspection, Normal Range of Motion, No Pedal Edema Skin: Warm, Dry, Intact Neurological: Cranial Nerves Intact, Reflexes Equal Bilateral Neuro Extensive - Mental Status: Alert, Oriented x3, Normal Mood/Affect, Memory Intact Neuro Extensive - Motor, Sensory, Reflexes: CN II-XII Intact Psychiatric: Alert, Normal Affect, Normal Mood Sepsis Event Note - Focused Exam Vital Signs: Vital Signs Temp Pulse Resp BP Pulse Ox 04/27/20 15:07 97.2 F 73 18 106/53 L 97 Problem List Initiated/Reviewed/Updated: Yes Orders Last 24hrs: Active Orders 24 hr Category Date Time Status Patient Status [ADT] Routine ADT 04/27/20 15:12 Active Activity as Tolerated [RC] .Routine Care 04/27/20 15:12 Active Ambulate [RC] QID Care 04/27/20 15:12 Active Antiembolic Devices [RC] .Routine Care 04/27/20 15:12 Active Height and Weight [RC] UPON Care 04/27/20 15:12 Active Intake and Output [RC] QSHIFT Care 04/27/20 15:16 Active May Shower [RC] ASDIRECTED Care 04/27/20 15:12 Active Notify Provider Vital Signs [RC] ASDIRECTED Care 04/27/20 15:12 Active Peripheral IV Care [RC] . DIRECTED Care 04/27/20 15:12 Active Peripheral IV Care [RC] . DIRECTED Care 04/27/20 15:12 Active Peripheral IV Care [RC] . DIRECTED Care 04/27/20 15:12 Active Pulse Oximetry [RC] CONTINUOUS Care 04/27/20 15:16 Active RT Post Treatment Assessment [RC] Click to Edit Care 04/27/20 15:26 Active Up to Chair [RC] QID Care 04/27/20 15:12 Active Vital Signs [RC] Q4H Care 04/27/20 15:12 Active NPO After Midnight [Nothing per Oral After Midnight Diet 04/27/20 Dinner Active Diet] [DIET] NPO Now [Nothing per Oral Now Diet] [DIET] Diet 04/27/20 Dinner Active Nothing Per Oral Diet [DIET] Diet 04/27/20 Dinner Active Abdomen 2V AP Flat Upright [CR] Timed Exams 04/27/20 15:19 Ordered CBC W/O DIFF,HEMOGRAM [HEME] Timed Lab 04/28/20 04:00 Ordered COMPREHENSIVE METABOLIC PN,CMP [CHEM] Timed Lab 04/28/20 04:00 Ordered FERRITIN [CHEM] Routine Lab 04/27/20 15:12 Ordered FERRITIN [CHEM] Routine Lab 04/27/20 15:19 Ordered FOLIC ACID [CHEM] Routine Lab 04/27/20 15:12 Ordered MAGNESIUM [CHEM] Routine Lab 04/27/20 15:12 Ordered MAGNESIUM [CHEM] Timed Lab 04/28/20 04:00 Ordered PHOSPHORUS [CHEM] Routine Lab 04/27/20 15:12 Ordered PHOSPHORUS [CHEM] Timed Lab 04/28/20 04:00 Ordered VITAMIN B12 [CHEM] Routine Lab 04/27/20 15:12 Ordered VITAMIN D,25-HYDROXY [CHEM] Routine Lab 04/27/20 15:12 Ordered Albuterol [Ventolin HFA] Med 04/27/20 15:20 Ordered 8.5 gm INH Q4H PRN Cetirizine [ZyrTEC] Med 04/28/20 09:00 Ordered 10 mg PO DAILY ClonazePAM [KlonoPIN] Med 04/28/20 09:00 Ordered 0.5 mg PO DAILY Cyclobenzaprine [Flexeril] Med 04/27/20 15:20 Ordered 10 mg PO DAILY PRN Dextrose 5%-Lactated Ringers 1,000 ml Med 04/27/20 15:15 Ordered IV ASDIRECTED FLUoxetine HCl [Fluoxetine] Med 04/28/20 09:00 Ordered 40 mg PO DAILY Gabapentin [Neurontin] Med 04/27/20 21:00 Ordered 300 mg PO TID HYDROmorphone [Dilaudid] Med 04/27/20 15:29 Ordered 0.5 mg IVPUSH Q2H PRN HYDROmorphone [Dilaudid] Med 04/27/20 15:30 Ordered 1 mg IVPUSH Q2H PRN Hyoscyamine [Levsin] Med 04/27/20 15:20 Ordered 0.125 mg PO Q4HR PRN Midodrine [Midodrine] Med 04/27/20 21:00 Ordered 5 mg PO TID Mometasone Furoate [Nasonex [place]] Med 04/27/20 21:00 Ordered 0.0001 gm NASBOTH BID Naratriptan HCl [Naratriptan HCl] Med 04/27/20 15:20 Ordered 1 mg PO DAILY PRN Ondansetron [Zofran] Med 04/27/20 15:12 Ordered 4 mg IVPUSH Q6H PRN Pantoprazole [ProTONIX IV] Med 04/27/20 21:00 Ordered 40 mg IVPUSH BID Sodium Chloride 0.9% [Saline Flush] Med 04/27/20 15:12 Ordered 10 ml FLUSH ASDIRECTED PRN Trimethoprim [Trimethoprim] Med 04/28/20 09:00 Ordered 100 mg PO DAILY buPROPion [Wellbutrin] Med 04/27/20 21:00 Ordered 100 mg PO TID Peripheral IV Insertion Adult [OM.PC] Routine Oth 04/27/20 15:12 Ordered Sequential Compression Device [OM.PC] Routine Oth 04/27/20 15:12 Ordered Medication Orders Albuterol (Ventolin Hfa) 8.5 gm INH Q4H PRN PRN Reason: Allergies Bupropion HCl (Wellbutrin) 100 mg PO TID SOPHIA Cetirizine HCl (Zyrtec) 10 mg PO DAILY SOPHIA Clonazepam (Klonopin) 0.5 mg PO DAILY SOPHIA Cyclobenzaprine HCl (Flexeril) 10 mg PO DAILY PRN PRN Reason: Pain Gabapentin (Neurontin) 300 mg PO TID SOPHIA Hydromorphone HCl (Dilaudid) 0.5 mg IVPUSH Q2H PRN PRN Reason: Pain Hydromorphone HCl (Dilaudid) 1 mg IVPUSH Q2H PRN PRN Reason: Pain Dextrose/Lactated Ringer's (Dextrose 5%-Lactated Ringers) 1,000 mls @ 125 mls/hr IV ASDIRECTED SOPHIA Mometasone Furoate (Nasonex [place]) 0.0001 gm NASBOTH BID SOPHIA Non-Formulary Medication (Fluoxetine Hcl [Fluoxetine]) 40 mg PO DAILY SOPHIA Non-Formulary Medication (Hyoscyamine [Levsin]) 0.125 mg PO Q4HR PRN PRN Reason: Other Non-Formulary Medication (Midodrine [Midodrine]) 5 mg PO TID SOPHIA Non-Formulary Medication (Naratriptan Hcl [Naratriptan Hcl]) 1 mg PO DAILY PRN PRN Reason: Headache Non-Formulary Medication (Trimethoprim [Trimethoprim]) 100 mg PO DAILY SOPHIA Ondansetron HCl (Zofran) 4 mg IVPUSH Q6H PRN PRN Reason: Nausea/Vomiting Pantoprazole Sodium (Protonix Iv) 40 mg IVPUSH BID [facility] Sodium Chloride (Saline Flush) 10 ml FLUSH ASDIRECTED PRN PRN Reason: Keep Vein Open Assessment/Plan Comment:: Assessment: Partial Small Bowel Obstruction SP RNY Gastric Bypass Surgery Plan: Admit as Inpatient See copy of orders Will evaluate in AM May need Laparotomy for Release of Partial Small Bowel Obstruction Plan of Hospitalization 2 - 3 nights and 4 days Kiley LAINEZ C - Mortality Measure Prognosis:: Good
[2020-04-27] MEDS: Dextrose 5%-Lactated Ringers 1,000 ML IV SCH (16:30)
[2020-04-27 17:50] LABS: CORONAVIRUS COVID-19 NAA NEGATIVE (NEGATIVE)
--- NOTE | 2020-04-27 18:06 | CRLCR ---
INDICATION: Postoperative ileus. COMPARISON: None available. FINDINGS: AP supine examination of the abdomen and pelvis was performed. Moderate amount of gas with mild distension of the redundant sigmoid colon, resulting from what appears to be a moderate-sized ball of fecal material in the rectum, suggesting fecal impaction. There is a mild amount of fecal material in the nondistended left colon, representing normal fecal burden. There is relatively little fecal material in the nondistended left colon. There is no sign of small bowel distension to suggest small bowel obstruction or an ileus. Multiple ring markers are seen distributed across the abdomen and the upper pelvis both to the left and right of midline consistent with a large mesh hernia repair. Soft tissue planes are preserved and there is no sign of a mass. No calcifications of concern are identified. Clips are seen in the right upper quadrant consistent with cholecystectomy. The urinary bladder is filled with excreted IV contrast and is normal in appearance. A T-shaped intrauterine device is in satisfactory position to the left of midline in the area of the superior uterine fundus. The osseous structures are normal in appearance for the patient`s age. The lung bases are clear. IMPRESSION: Moderate amount of fecal material in the rectum with mild gaseous distention of the redundant sigmoid colon proximal to this, suggesting fecal impaction. Unremarkable amount of fecal material distributed throughout the rest of the nondistended colon, not suggestive of constipation. No sign of small bowel distension. Status post large abdominal and upper pelvic wall mesh hernia repair. Dictated by Huseyin Curtis MD @ Apr 27 2020 5:59PM Signed by Dr. Huseyin Curtis @ Apr 27 2020 6:04PM
[2020-04-27] MEDS: Mometasone Furoate Nasal Spray 17 GM Canister NASBOTH SCH (20:09)
[2020-04-27] MEDS: Pantoprazole 40 MG Vial IVPUSH SCH (20:11)
[2020-04-27] MEDS: Gabapentin 300 MG Cap PO SCH (20:11)
[2020-04-27] MEDS: buPROPion 100 MG Tab PO SCH (20:11)
[2020-04-28] MEDS: Dextrose 5%-Lactated Ringers 1,000 ML IV SCH ×3 (01:30→21:02)
--- NOTE | 2020-04-28 09:03 | CR ---
Abdomen 2V AP Flat Upright CLINICAL HISTORY: Partial SBO FINDINGS: There is moderate gaseous distention of the transverse colon. There is a large amount of stool in the left colon and rectosigmoid. Small intestinal configuration is nonacute. Patient has had previous abdominal surgery as well as the previous ventral hernia repair. No free air seen IMPRESSION: Persistent moderate gaseous distention of the transverse colon with moderate fecal retention in the left colon and rectosigmoid may represent fecal impaction
[2020-04-28] MEDS: Azithromycin 125 MG in Sodium Chloride 0.9% 150 ML IV SCH (09:18)
[2020-04-28] MEDS: buPROPion 100 MG Tab PO SCH ×3 (09:21→21:07)
[2020-04-28] MEDS: FLUoxetine 20 MG Cap PO SCH (09:21)
[2020-04-28] MEDS: Docusate Sodium 100 MG Cap PO SCH ×2 (09:21→21:06)
[2020-04-28] MEDS: Bisacodyl 5 MG Tab PO SCH ×2 (09:22→21:07)
[2020-04-28] MEDS: Gabapentin 300 MG Cap PO SCH ×3 (09:22→21:07)
[2020-04-28] MEDS: ClonazePAM 0.5 MG Tab PO SCH (09:25)
[2020-04-28] MEDS: Cetirizine 10 MG Tab PO SCH (09:27)
[2020-04-28] MEDS: Pantoprazole 40 MG Vial IVPUSH SCH ×2 (09:29→21:07)
[2020-04-28] MEDS: Mometasone Furoate Nasal Spray 17 GM Canister NASBOTH SCH ×2 (09:29→21:07)
--- NOTE | 2020-04-28 11:17 | PN ---
DATE OF SERVICE: 04/28/2020 SUBJECTIVE: Radha was admitted by ambulance from [facility] yesterday afternoon for a severe abdominal pain. Since she has been admitted, she has had no further abdominal pain. She reports it is completely gone. Abdominal x-rays showed constipation. Vital signs have been stable. Oral intake was 120. She was on just sips of fluid. Urine output 500 plus 1 additional void. No fever, chills. She did report a migraine headache and was given Imitrex dose as she takes at home. No chest pain, shortness of breath. REVIEW OF SYSTEMS: ABDOMEN: No nausea, vomiting, diarrhea, or constipation. No pain. Has no bowel movement since admission. EXTREMITIES: No joint pain or swelling. NEUROLOGIC: Currently, her headache has gone. Negative. PSYCHIATRIC: Negative. SKIN: Without rash. Remainder of review of systems negative for any pertinent positives and negatives. OBJECTIVE: GENERAL: Radha Martínez is a pleasant 39-year-old female. She is resting comfortably in bed. VITAL SIGNS: TPR 95.9, 61, 18, blood pressure 107/66. HEENT: Negative. NECK: Supple. HEART: Regular rate and rhythm. LUNGS: Clear. ABDOMEN: Nontender, flat, soft. Very minimal tenderness in the midepigastric area. EXTREMITIES: Without peripheral edema. ASSESSMENT: Partial small bowel obstruction, status post Valerie-en-Y gastric bypass surgery, unspecified surgical malabsorption, B12 deficiency. PLAN: 1. Saline enema 750 mL now. Repeat in 2 hours. 2. Abdominal flat and upright x-ray daily x3 days at 0400. 3. Dulcolax 10 mg p.o. b.i.d. 4. Colace 100 mg p.o. b.i.d. 5. Zithromax 125 mg IV daily. 6. Clear liquids. 7. We will check into insurance coverage on either [employer] or [email or web address] for chronic constipation. 8. We will evaluate p.r.n. or in a.m. Kiley Perdue PA-C /[id number]
[2020-04-28] MEDS: Midodrine 5 MG Tab PO SCH ×3 (12:38→21:07)
[2020-04-29] MEDS: Dextrose 5%-Lactated Ringers 1,000 ML IV SCH (03:56)
[2020-04-29] MEDS ORDERED: Sodium Chloride 0.9% 10 ML Syringe IV SCH (07:45)
[2020-04-29] MEDS: Azithromycin 125 MG in Sodium Chloride 0.9% 150 ML IV SCH (09:07)
[2020-04-29] MEDS: Docusate Sodium 100 MG Cap PO SCH ×2 (09:09→20:59)
[2020-04-29] MEDS: Bisacodyl 5 MG Tab PO SCH ×2 (09:09→20:59)
[2020-04-29] MEDS: FLUoxetine 20 MG Cap PO SCH (09:10)
[2020-04-29] MEDS: buPROPion 100 MG Tab PO SCH ×3 (09:10→20:59)
[2020-04-29] MEDS: Gabapentin 300 MG Cap PO SCH ×3 (09:10→20:59)
[2020-04-29] MEDS: Cetirizine 10 MG Tab PO SCH (09:11)
[2020-04-29] MEDS: Mometasone Furoate Nasal Spray 17 GM Canister NASBOTH SCH ×2 (09:11→20:56)
[2020-04-29] MEDS: Midodrine 5 MG Tab PO SCH ×3 (09:11→20:59)
[2020-04-29] MEDS: Pantoprazole 40 MG Vial IVPUSH SCH (09:11)
[2020-04-29] MEDS: ClonazePAM 0.5 MG Tab PO SCH (09:24)
--- NOTE | 2020-04-29 11:43 | PN ---
CORRECTED REPORT DATE OF SERVICE: 04/29/2020 The patient has been afebrile with stable vital signs. She had large amount of bowel movements over the last 24 hours and we will today try initiating diet once again with a step 3 diet and saline lock the IV, and we will be starting her on some prior authorization for that has been initiated. Brandon Youngblood MD /[id number] MTDD
[2020-04-29] MEDS: Pantoprazole 40 MG Tab.CR PO SCH (16:47)
[2020-04-29] MEDS: Acetaminophen 500 MG Tab PO SCH (20:57)
[2020-04-30] MEDS: Acetaminophen 500 MG Tab PO SCH ×2 (04:49→09:23)
[2020-04-30] MEDS: Pantoprazole 40 MG Tab.CR PO SCH (07:16)
[2020-04-30] MEDS: Azithromycin 125 MG in Sodium Chloride 0.9% 150 ML IV SCH (09:11)
[2020-04-30] MEDS: ClonazePAM 0.5 MG Tab PO SCH (09:21)
[2020-04-30] MEDS: Gabapentin 300 MG Cap PO SCH (09:22)
[2020-04-30] MEDS: buPROPion 100 MG Tab PO SCH (09:22)
[2020-04-30] MEDS: Bisacodyl 5 MG Tab PO SCH (09:22)
[2020-04-30] MEDS: FLUoxetine 20 MG Cap PO SCH (09:22)
[2020-04-30] MEDS: Midodrine 5 MG Tab PO SCH (09:22)
[2020-04-30] MEDS: Docusate Sodium 100 MG Cap PO SCH (09:22)
[2020-04-30] MEDS: Cetirizine 10 MG Tab PO SCH (09:23)
[2020-04-30] MEDS: Mometasone Furoate Nasal Spray 17 GM Canister NASBOTH SCH (09:23)
--- NOTE | 2020-04-30 16:50 | DISCH ---
FINAL DIAGNOSES: 1. Severe constipation. 2. Bariatric surgery status. 3. History of polycystic ovarian syndrome. OPERATIVE PROCEDURES: None. SUMMARY: This is a 39-year-old status post a Valerie-en-Y gastric bypass, partial bowel obstruction, and hernia repair with mesh. She presented to the [place] [facility] on 04/24/2020 with severe abdominal pain. CT scan was suggestive of possible volvulus and she was transferred here. On examination of the patient and her x-ray status in [place], it was felt that the main problem likely was constipation and this did respond to MiraLAX with resolution of the patient's symptoms, tolerating a step-3 diet over the last 24 hours. She will be discharged home on her usual medications plus Linzess 145 mcg p.o. daily along with Colace 100 mg p.o. b.i.d. also will be called in, and will follow up with virtual appointment with Kiley Perdue on Friday05/09/2020 at 10 a.m. She is instructed to call if the abdominal pain recurs in the interim. /[id number]
--- NOTE | 2020-05-01 09:35 | CR ---
Abdomen 2V AP Flat Upright CLINICAL HISTORY: SBO FINDINGS: Small intestinal configuration is nonacute. No free air is identified. There has been previous gastric surgery and a ventral hernia repair. There is some gas and feces throughout the colon which has decreased when compared to prior study. IMPRESSION: Nonacute intestinal gas pattern Decreasing colonic content
--- NOTE | 2020-05-01 09:37 | CR ---
Abdomen 2V AP Flat Upright CLINICAL HISTORY: SBO FINDINGS: No free air is identified. Small intestinal configuration is nonacute. There is increasing stool in the left colon. Previous abdominal surgeries have been described. IMPRESSION: Nonacute intestinal gas pattern Increasing stool left colon
== END 2020-04-30 11:50 | disposition home or self-care (01) | DRG 254 ==
LOC: JP.MS 15:02
PROVIDERS: ADMIT Surgery; ATTEND Surgery
DX: K59.00 Constipation, unspecified (principal); J30.9 Allergic rhinitis, unspecified; K90.9 Intestinal malabsorption, unspecified; K52.9 Noninfective gastroenteritis and colitis, unspecified; K21.9 Gastro-esophageal reflux disease without esophagitis; N93.8 Other specified abnormal uterine and vaginal bleeding; G89.29 Other chronic pain; M54.9 Dorsalgia, unspecified; G43.909 Migraine, unspecified, not intractable, without status migrainosus; F41.9 Anxiety disorder, unspecified; F32.9 Major depressive disorder, single episode, unspecified; F43.10 Post-traumatic stress disorder, unspecified; E66.9 Obesity, unspecified; D64.9 Anemia, unspecified; E53.8 Deficiency of other specified B group vitamins; D50.9 Iron deficiency anemia, unspecified; Z98.84 Bariatric surgery status; Z91.048 Other nonmedicinal substance allergy status; Z88.8 Allergy status to other drugs, medicaments and biological substances; Z88.2 Allergy status to sulfonamides; Z79.899 Other long term (current) drug therapy; Z87.440 Personal history of urinary (tract) infections; Z90.49 Acquired absence of other specified parts of digestive tract
CPT/HCPCS: 0241U; 36415; 74019; 74019-26; 80053; 82306; 82607; 82728; 82746; 83735; 84100; 85027; 94762; A9270-GY; C9113; J0456; J7121